=== PATIENT | male | born 1965 | race Two or more races ===

== ENCOUNTER → 2024-12-16 | Outpatient (CLI) | payer BC ==
[2024-12-16 07:23] LABS: Urine Bacteria None Seen /hpf (None Seen)
[2024-12-16 07:49] LABS: Basophils # (auto) 0 10 ^3/uL (0-0.2); Basophils % (auto) 0.1 % (0.0-2.0); Eosinophils # (auto) 0.2 10 ^3/uL (0-0.8); Eosinophils % (auto) 2.6 % (0.0-7.0); Hematocrit 43.9 % (41.0-53.0); Hemoglobin 15.2 g/dL (13.5-17.5); Lymphocytes # (auto) 1.9 10 ^3/uL (0.4-5.4); Lymphocytes % (auto) 31.2 % (10.0-50.0); Mean Corpuscular Hemoglobin 30.8 pg (28.0-32.0); Mean Corpuscular Hgb Conc. 34.7 g/dL (32.0-36.0); Mean Corpuscular Volume 88.8 fL (80.0-100.0); Monocytes # (auto) 0.4 10 ^3/uL (0-1.3); Monocytes % (auto) 7.2 % (0.0-12.0); Neutrophils # (auto) 3.7 10 ^3/uL (1.6-8.6); Neutrophils % (auto) 58.9 % (37.0-80.0); Nucleated Red Blood Cells % 0.1 %; Platelet Count (auto) 193 10^3/uL (140-450); Red Blood Cells 4.94 10^6/uL (4.5-5.90); Red Cell Distribution Width 13.5 % (11.8-14.3); White Blood Cell 6.2 10^3/uL (4.4-10.8)
[2024-12-16 07:50] LABS: Urine Blood Negative /uL (Negative); Urine Clarity Clear (Clear); Urine Color Yellow (Yellow); Urine Protein, UAD Negative (Negative); Urine Specific Gravity 1.025 (1.001-1.035); Urine Squamous Epithelial Cell None Seen /hpf (<5); Urine Urobilinogen Normal (Negative); Urine WBC < 1 /HPF (0-3)
[2024-12-16 08:14] LABS: Alanine Aminotransferase 41 U/L (7-40); Albumin 4.5 g/dL (3.2-4.8); Alkaline Phosphatase 54 U/L (46-116); Aspartate Aminotransferase 37 U/L (13-40); Bilirubin, Total 0.3 mg/dL (0.2-1.0); Calcium 9.8 mg/dL (8.7-10.4); Cholesterol 134 mg/dL (< 200); LDL Cholesterol 79 mg/dL (< 100); Potassium 3.9 mmol/L (3.5-5.1); Sodium 143 mmol/L (136-145); Total Protein 7.5 g/dL (5.7-8.2); Triglycerides 234 mg/dL (< 150)
[2024-12-16 08:15] LABS: Glucose 131 mg/dL (74-106); HDL Cholesterol 28 mg/dL (40-59)
[2024-12-16 08:16] LABS: Chloride 108 mmol/L (98-107)
[2024-12-16 08:17] LABS: Anion Gap 11 (5-15); BUN/Creatinine Ratio 23.1 (10.0-20.0); Blood Urea Nitrogen 21 mg/dL (9-23); Carbon Dioxide 24 mmol/L (20-31)
[2024-12-17 13:14] LABS: Hepatitis A Total Antibody Negative (Negative)
[2024-12-17 13:15] LABS: Hepatitis B Surface Antibody Negative (Negative); Hepatitis B Surface Antigen Negative (Negative)
[2024-12-17 13:19] LABS: Hepatitis B Core Total AB Positive (Negative); Hepatitis C Antibody Positive (Negative)
[2024-12-18 05:08] LABS: Chlamydia Trachomatis, NAA Negative (Negative); Neisseria gonorrhoeae, NAA Negative (Negative)
== END | disposition home or self-care (01) ==
LOC: LAB 07:04
PROVIDERS: ATTEND Licensed Practical Nurse
DX: I10 Essential (primary) hypertension (principal); E11.9 Type 2 diabetes mellitus without complications; E55.9 Vitamin D deficiency, unspecified; E78.5 Hyperlipidemia, unspecified; Z13.6 Encounter for screening for cardiovascular disorders; Z12.11 Encounter for screening for malignant neoplasm of colon; Z11.3 Encounter for screening for infections with a predominantly sexual mode of transmission; Z13.29 Encounter for screening for other suspected endocrine disorder
CPT/HCPCS: 36415; 80053; 80061; 81001; 82043; 82274; 82306; 83036; 84153; 84443; 85025; 86704; 86706; 86708; 86780; 86803; 87340

== ENCOUNTER 2025-02-18 06:19 | Inpatient (IN) | payer BC ==
[2025-02-17 13:00] LABS: Hematocrit 46.3 % (41.0-53.0); Hemoglobin 16.4 g/dL (13.5-17.5); Mean Corpuscular Hemoglobin 31.7 pg (28.0-32.0); Mean Corpuscular Volume 89.1 fL (80.0-100.0); Nucleated Red Blood Cells % 0.2 %
[2025-02-17 13:02] LABS: INR 1.03 (0.9-1.15); Partial Thromboplastin Time 27.5 SEC (24.5-34.5); Prothrombin Time 10.9 sec (9.3-11.8)
[2025-02-17 13:03] LABS: Urine Protein, UAD Negative (Negative)
[2025-02-17 13:13] LABS: Anion Gap 8 (5-15); BUN/Creatinine Ratio 17.0 (10.0-20.0); Blood Urea Nitrogen 19 mg/dL (9-23); Calcium 10.0 mg/dL (8.7-10.4); Carbon Dioxide 27 mmol/L (20-31); Chloride 105 mmol/L (98-107); Glucose 86 mg/dL (74-106); Potassium 4.2 mmol/L (3.5-5.1); Sodium 140 mmol/L (136-145); Total Protein 7.7 g/dL (5.7-8.2)
[2025-02-17 13:14] LABS: Bilirubin, Total 0.5 mg/dL (0.2-1.0)
[2025-02-17 13:16] LABS: Alanine Aminotransferase 64 U/L (7-40); Albumin 4.9 g/dL (3.2-4.8); Alkaline Phosphatase 45 U/L (46-116)
[~2025-02-18] VITALS: Ht 170.2 cm; Wt 103.0 kg
[2025-02-18] VITALS (29 sets, daily range): BP systolic 85–115; BP diastolic 44–77; PULSE 74–113; RESP 14–30; TEMP 97.2–97.9; O2SAT 84–95
[~2025-02-18 06:19] MED LIST: ASPI81CH59 PO; LISI20TA56 PO; MULTLIQ28 OR; OMEG100019 PO; TIRZ5INJ2 SC
[2025-02-18] MEDS: ceFAZolin 2 GM/D5W50ml 50 ML IV ONE (06:34)
[2025-02-18] MEDS ORDERED: HYDROmorphone HCL 2 MG/ML VL/or syr ONE (08:10)
[2025-02-18] MEDS ORDERED: PROPOFOL 10 MG/ML 20 ML IV ONE (08:10)
[2025-02-18] MEDS ORDERED: fentaNYL CITRATE 100 MCG/2 ML VL ONE ×2 (08:10→09:13)
[2025-02-18] MEDS: SUCCINYLCHOLINE CHLORIDE 20 MG/ML 10ML VIAL IV ONE (08:13)
[2025-02-18] MEDS ORDERED: ROCURONIUM 10MG/ML 10ML VIAL IV ONE (08:50)
[2025-02-18] MEDS ORDERED: ONDANSETRON HCL 4 MG/2 ML VIAL ONE (08:51)
[2025-02-18] MEDS ORDERED: SUGAMMADEX 200mg/2ml Vial (100MG/ML) IV ONE (09:29)
[2025-02-18] MEDS: BUPIVACAINE 0.5% P/F INJ 10 ML VIAL ONE (09:33)
[2025-02-18] MEDS: LIDOCAINE W/ EPINEPHRINE 1% 20ML VIAL ONE (09:33)
[2025-02-18] MEDS ORDERED: ONDANSETRON HCL 4 MG/2 ML VIAL IV PRN ×2 (09:45→12:30)
[2025-02-18] MEDS: D5W/SOD CHL 0.45%/KCL 20MEQ 1,000 ML IV SCH (09:45)
[2025-02-18] MEDS: METOCLOPRAMIDE HCL 5MG/ml INJ 2ml VIAL IV ONE (10:00)
[2025-02-18] MEDS: ONDANSETRON HCL 4 MG/2 ML VIAL IV ONE (10:00)
[2025-02-18] MEDS ORDERED: MEPERIDINE HCL (25 MG/ML) 1ML VIAL IV PRN (10:00)
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
[2025-02-18] MEDS: ACETAMINOPHEN IV 1000 MG/100ML (10MG/ML) IV PRN (10:15)
[2025-02-18] MEDS: HYDROmorphone HCL 2 MG/ML VL/or syr IV PRN ×2 (10:15→21:05)
[2025-02-18] MEDS: HYDROmorphone HCL 2 MG/ML VL/or syr ONE (10:40)
[2025-02-18] MEDS: ACETAMINOPHEN IV 100 ML IV ONE (10:41)
--- NOTE | 2025-02-18 12:19 | DVHHP2 ---
Review of Systems Allergies: Coded Allergies: NO KNOWN ALLERGIES (Unverified , 02/12/25) Medications Current Medications Medications Dose Ordered Sig/Liz Route Start Time Stop Time Status Last Admin Dose Admin Potassium Chloride/Dextrose/ Sod Cl 1,000 ml @ 120 mls/hr Q8H20M IV 02/18/25 09:45 Cefazolin Sodium/ Dextrose 50 ml @ 50 mls/hr Q8HR IV 02/18/25 14:00 Metronidazole 100 ml @ 100 mls/hr Q8HR IV 02/18/25 14:00 Hydromorphone HCl 1 mg Q3HPRN PRN IV 02/18/25 09:45 Ondansetron HCl 4 mg Q4HPRN PRN IV 02/18/25 09:45 Pantoprazole Sodium 40 mg DAILY IV 02/18/25 10:00 Exam Vital Signs Vital Signs Date Time Temp Pulse Resp B/P (MAP) Pulse Ox O2 Delivery O2 Flow Rate FiO2 02/18/25 10:25 21 21 127/75 (92) 93 02/18/25 09:42 96.5 96.5 02/18/25 09:42 Mask 10.0 84 Labs/Xrays Labs Test 02/17/25 12:20 Range/Units White Blood Count 5.4 4.4-10.8 10^3/uL Red Blood Count 5.19 4.5-5.90 10^6/uL Hemoglobin 16.4 13.5-17.5 g/dL Hematocrit 46.3 41.0-53.0 % Mean Corpuscular Volume 89.1 80.0-100.0 fL Mean Corpuscular Hemoglobin 31.7 28.0-32.0 pg Mean Corpuscular Hemoglobin Concent 35.5 32.0-36.0 g/dL Red Cell Distribution Width 13.7 11.8-14.3 % Platelet Count 202 140-450 10^3/uL Mean Platelet Volume 8.7 6.9-10.8 fL Neutrophils (%) (Auto) 53.4 37.0-80.0 % Lymphocytes (%) (Auto) 36.6 10.0-50.0 % Monocytes (%) (Auto) 7.9 0.0-12.0 % Eosinophils (%) (Auto) 2.0 0.0-7.0 % Basophils (%) (Auto) 0.1 0.0-2.0 % Neutrophils # (Auto) 2.9 1.6-8.6 10 ^3/uL Lymphocytes # (Auto) 2.0 0.4-5.4 10 ^3/uL Monocytes # (Auto) 0.4 0-1.3 10 ^3/uL Eosinophils # (Auto) 0.1 0-0.8 10 ^3/uL Basophils # (Auto) 0 0-0.2 10 ^3/uL Nucleated Red Blood Cells 0.2 % Prothrombin Time 10.9 9.3-11.8 sec Prothrombin Time INR 1.03 0.9-1.15 Activated Partial Thromboplast Time 27.5 24.5-34.5 SEC Urine Color Yellow Yellow Urine Clarity Clear Clear Urine pH 6.0 5.0-9.0 Urine Specific [place] 1.029 1.001-1.035 Urine Protein Negative Negative Urine Ketones Negative Negative Urine Blood Negative Negative /uL Urine Nitrite Negative Negative Urine Bilirubin Negative Negative Urine Urobilinogen Normal Negative mg/dL Urine Leukocyte Esterase Negative Negative /uL Urine RBC 1 0 - 3 /hpf Urine Microscopic WBC 1 0-3 /HPF Urine Squamous Epithelial Cells Few <5 /hpf Urine Bacteria None seen None Seen /hpf Urine Mucus Few None Seen Urine Glucose Normal Normal mg/dL Sodium Level 140 136-145 mmol/L Potassium Level 4.2 3.5-5.1 mmol/L Chloride Level 105 98-107 mmol/L Carbon Dioxide Level 27 20-31 mmol/L Anion Gap 8 5-15 Blood Urea Nitrogen 19 9-23 mg/dL Creatinine 1.12 0.700-1.30 mg/dL Glomerular Filtration Rate Calc 75 >90 mL/min BUN/Creatinine Ratio 17.0 10.0-20.0 Serum Glucose 86 74-106 mg/dL Calcium Level 10.0 8.7-10.4 mg/dL Total Bilirubin 0.5 0.2-1.0 mg/dL Aspartate Amino Transferase (AST) 54 H 13-40 U/L Alanine Aminotransferase (ALT) 64 H 7-40 U/L Alkaline Phosphatase 45 L 46-116 U/L Total Protein 7.7 5.7-8.2 g/dL Albumin 4.9 H 3.2-4.8 g/dL SEPSIS Sepsis Screen Physician Orders Commutator Assembler (02/18/25 09:50) Notify Anesth. For Changes: (02/18/25 09:50) Discharge To Room Per Criteria (02/18/25 09:50) Admit (02/18/25 10:34) To Pacu For Recovery (02/18/25 09:36) Oxygen Via Cool Mist Mask (02/18/25 09:36) Incentive Spirometry Q 1hr (02/18/25 09:36) Abdominal Binder (02/18/25 09:36) Ky Drain To Closed Suction (02/18/25 09:36) Clear Liq Diet (02/18/25 Lunch) Bilirubin, Total (02/19/25 04:00) Sequential Compression Device (02/18/25 09:36) D5w/Sod Chl 0.45%/Kcl 20meq (02/18/25 09:45) Cefazolin 2 Gm/S3y74lw (Ancef) (02/18/25 14:00) Metronidazole 500mg/100ml (Flagyl 500mg/ (02/18/25 14:00) Hydromorphone Injection (Dilaudid Inject (02/18/25 09:45) Ondansetron Hcl (Zofran) (02/18/25 09:45) Pantoprazole (Protonix) (02/18/25 10:00) Page Hospitalist For Admission (02/18/25 09:36) Vital Signs Date Time Temp Pulse Resp B/P (MAP) Pulse Ox O2 Delivery O2 Flow Rate FiO2 02/18/25 10:25 21 21 127/75 (92) 93 02/18/25 10:10 87 15 128/84 (99) 94 02/18/25 09:55 85 16 127/70 (89) 90 02/18/25 09:50 85 17 116/73 (87) 93 02/18/25 09:45 85 17 108/73 (85) 93 02/18/25 09:42 96.5 86 16 108/69 (82) 84 96.5 02/18/25 09:42 Mask 10.0 84 02/18/25 09:42 86 16 84 Mask 10.0 02/18/25 06:24 98.1 61 20 134/94 (107) 96 98.1 Medications Medications Dose Ordered Sig/Liz Route Start Time Stop Time Status Last Admin Dose Admin Acetaminophen 1,000 mg [id number] PRN IV 02/18/25 10:00 02/18/25 10:24 DC 02/18/25 10:15 1,000 MG Bupivacaine HCl 20 ml STK-MED ONCE .ROUTE 02/18/25 06:57 02/18/25 06:55 DC 02/18/25 09:33 10 ML Hydromorphone HCl 0.5 mg Q10M PRN IV 02/18/25 10:00 02/18/25 10:41 DC 02/18/25 10:15 0.5 MG Lidocaine/ Epinephrine 20 ml STK-MED ONCE .ROUTE 02/18/25 06:57 02/18/25 06:55 DC 02/18/25 09:33 10 ML Assessment/Plan Assessment/Plan see dictated note Plan discussed with: Patient Date of Service: Feb 18, 2025 Billing Provider: ROMANA LANDAVERDE MD Common Visit Codes: [id number] INP/OBS CARE (HIGH) Secondary Visit Codes: [id number] CARE PLAN 30 MINUTES ROMANA LANDAVERDE MD Feb 18, 2025 12:19
[2025-02-18] MEDS: PANTOPRAZOLE 40 MG/10 ML VIAL INJ IV SCH (12:30)
[2025-02-18] MEDS ORDERED: ACETAMINOPHEN 325 MG TAB PO PRN (12:30)
--- NOTE | 2025-02-18 12:33 | DVHHP ---
ADMIT DATE: 02/18/2025 HISTORY OF PRESENT ILLNESS: The patient is a 59-year-old gentleman who has been admitted after he underwent laparoscopic cholecystectomy for cholelithiasis and chronic cholecystitis. The patient at this time denies any significant pain. No chest pain, no shortness of breath, no nausea or vomiting. REVIEW OF SYSTEMS: Otherwise currently negative. PAST MEDICAL HISTORY: Significant for hepatitis C status post treatment and hypertension. MEDICATIONS: He takes lisinopril, Zepbound. ALLERGIES: No known drug allergies. SOCIAL HISTORY: Denies smoking or alcohol. Lives at home with his children. FAMILY HISTORY: Negative. PHYSICAL EXAMINATION: GENERAL: The patient is awake and alert. VITAL SIGNS: Temperature of 98.1, pulse 87 per minute, blood pressure 122/84. SHEENT: Unremarkable. NECK: There is no JVD. No pedal edema. LUNGS: Equal bilaterally. No added sounds. CARDIOVASCULAR: S1 and S2 is regular. No murmurs. ABDOMEN: Soft. Bowel sounds are hypoactive. There is a RADHA drain in place. NEUROLOGIC: Nonfocal. MUSCULOSKELETAL: Normal. ASSESSMENT AND PLAN: * Hypertension, for which the patient's blood pressure will be monitored. * History of hepatitis C. * Obesity. * Status post laparoscopic cholecystectomy for cholelithiasis and chronic cholecystitis. * The patient will be placed on IV fluids, pain medications, and a clear liquid diet. * Advanced care planning. The patient is a full code - Time spent is 18 minutes. MD DELILAH Dotson/SHARAN TID: [id number] RECEIPT: [id number] [facility]PITALBlake
[2025-02-18] MEDS: ceFAZolin 2 GM/D5W50ml 50 ML IV SCH (13:36)
[2025-02-18] MEDS: NOREPINEPHRINE 8 MG/250ML KIT 250 ML IV SCH (13:43)
[2025-02-18 13:51] LABS: Hematocrit 32.4 % (41.0-53.0); Hemoglobin 11.2 g/dL (13.5-17.5); Mean Corpuscular Hemoglobin 31.2 pg (28.0-32.0); Mean Corpuscular Volume 90.2 fL (80.0-100.0); Nucleated Red Blood Cells % 0.0 %
[2025-02-18] MEDS: NOREPINEPHRINE 8 MG/250ML KIT 250 ML IV ONE (13:51)
[2025-02-18] MEDS ORDERED: D5W/SOD CHL 0.45%/KCL 20MEQ 1,000 ML IV SCH (14:30)
[2025-02-18 14:55] LABS: INR 1.16 (0.9-1.15); Prothrombin Time 12.1 sec (9.3-11.8)
--- NOTE | 2025-02-18 15:21 | DVHNC2 ---
Procedure - Central Line Placement Start: 1455 Finish: [address] central line for patient s/p lap rupert with hypotension, oozing at surgical site, and Levophed infusion. Patient ID's and interviewed, consents signed, monitors on in PACU, VSS on Levophed infusion. Patient positioned supine, head to left side, and bed in slight Trendelenburg position. Site is prepped and drape with full body drape. Sterile technique is maintained throughout line placement. US ID of anatomy performed. Right Internal Jugular Vein identified. 3 ml Lidocaine 1% injected subdermal. Finder needle placed under US guidance and dark, red blood is aspirated. Syringe is removed and guidewire placed, guidewire visualization in maintained throughout procedure. Needle is removed. Small incision is made with scalpel along the guidewire. Dilator is placed over guidewire and then removed. 7 fr 3-lumen 20 cm catheter is placed over wire. Wire is then removed. Each lumen of catheter is aspirated and then flushed with normal saline, dark red blood is aspirated each time easily and each lumen flushes easily. Catheter is then sutured in place, Bio- Patch is placed at site. Site is cleaned, drapes removed, and dressing applied. Each lumen is then flushed again with normal saline, each flushes easily. IV lines are attached and drips continued. VSS throughout, all atraumatic. ZOIE SNIDER CRNA Feb 18, 2025 15:21
[2025-02-18] MEDS: FUROSEMIDE 20 MG/2 ML VIAL IV ONE (15:38)
[2025-02-18] MEDS: FUROSEMIDE 20 MG/2 ML VIAL ONE (15:39)
--- NOTE | 2025-02-18 15:46 | DVH ---
EXAM: XY CHEST XRAY 1 VIEW TECHNIQUE: Single frontal chest radiograph CLINICAL HISTORY: PER DOCTOR ORDER COMPARISON: None Findings/Impression: Frontal chest radiograph demonstrates no acute osseous or superficial soft tissue abnormalities. Right IJ catheter terminates near the inferior cavoatrial junction. The trachea is midline. The cardiac silhouette and mediastinum are within normal limits. Low lung volumes with bronchovascular crowding. No pneumothorax, pleural effusions, or consolidations.
--- NOTE | 2025-02-18 16:04 | DVHPN2 ---
Progress Note Date Seen: Feb 18, 2025 Medical Necessity Reason Pt with a Central, PICC or Fol: No Objective vital signs Vital Sign Date Time Temp Pulse Resp B/P (MAP) Pulse Ox O2 Delivery O2 Flow Rate FiO2 02/18/25 14:14 79/44 02/18/25 12:30 89 15 97 02/18/25 09:42 96.5 96.5 02/18/25 09:42 Mask 10.0 84 Total Intake and Output 02/17/25 02/17/25 02/18/25 15:00 23:00 07:00 Intake Total 100 ml Balance 100 ml medications Current Medications Medications Dose Ordered Sig/Liz Route Start Time Stop Time Status Last Admin Dose Admin Cefazolin Sodium/ Dextrose 50 ml @ 50 mls/hr Q8HR IV 02/18/25 14:00 02/18/25 13:36 50 MLS/HR Metronidazole 100 ml @ 100 mls/hr Q8HR IV 02/18/25 14:00 02/18/25 13:48 100 MLS/HR Hydromorphone HCl 1 mg Q3HPRN PRN IV 02/18/25 09:45 Pantoprazole Sodium 40 mg DAILY IV 02/18/25 10:00 02/18/25 12:30 40 MG Acetaminophen 650 mg Q6HP PRN PO 02/18/25 12:30 Acetaminophen/ Hydrocodone Bitart 1 tab Q6HPRN PRN PO 02/18/25 12:30 Ondansetron HCl 4 mg Q6HPRN PRN IV 02/18/25 12:30 Norepinephrine Bitartrate 250 ml @ 3.75 mls/hr Q24H IV 02/18/25 13:45 02/18/25 13:43 3.75 MLS/HR Lactated Ringer's 1,000 ml @ 150 mls/hr Q6H40M IV 02/18/25 14:30 Potassium Chloride/Dextrose/ Sod Cl 1,000 ml @ 150 mls/hr Q6H40M IV 02/18/25 14:30 UNV laboratory and microbiology Laboratory Tests 02/18/25 12:57 02/17/25 12:20 Test 02/17/25 12:20 Range/Units Serum Glucose 86 74-106 mg/dL Problem List/Assessment/Plan Problem List/Assessment/Plan 7/30/25i was called at about 1400 hours that the patient's BP was lower than desired, repeat cbc showed significant drop(patient received 4 liters of crystalloid during and immediately after operation.I came to check in onm the patient at about 14:30, he was comfortable,heart rate in the 90's bp[ in the 87 to 95 range./ he was started on Levophed at maintained BP in the 80 to 90 systolic on 7 to 8micrograms of levophed. I ordered a unit of blood and he is now maintaining BP of 102 /67. i also gave 20 mg Lasix and he is putting out dilute urine. we were able to decrease the Levophed to 4 and he is maintains BP of 103 //65 with heart rate of 95. CXR showed slight volume overload prior to Lasix administration. I removed his dressing and inspected the wounds, slight bloody drainage from around the RADHA drain. abdomen is soft, non distended and appropriately tender, I attempted to call his daughter but call went unanswered. Plan discussed with: Patient, Other KUSH CORNELIUS MD Feb 18, 2025 16:04
[2025-02-18 18:03] LABS: Hematocrit 34.8 % (41.0-53.0); Hemoglobin 12.1 g/dL (13.5-17.5); Mean Corpuscular Hemoglobin 31.0 pg (28.0-32.0); Mean Corpuscular Volume 89.2 fL (80.0-100.0); Nucleated Red Blood Cells % 0.0 %
[2025-02-18 18:06] LABS: INR 1.09 (0.9-1.15); Partial Thromboplastin Time 23.9 SEC (24.5-34.5); Prothrombin Time 11.5 sec (9.3-11.8)
[2025-02-18] MEDS: HYDROmorphone HCL 2 MG/ML VL/or syr IV ONE (18:30)
--- NOTE | 2025-02-18 19:59 | DVH ---
CLINICAL HISTORY: bleeding from surgical site TECHNIQUE: CT of the abdomen and pelvis was performed without intravenous contrast. This exam was per formed according to our departmental dose optimization program. Up-to-date CT equipment and radiation dose reduction techniques are utilized as appropriate. CTDI: 26.08 DLP: 3.92 WID: COMPARISON: None FINDINGS: Lower Thorax: Mild thoracic spondylosis. Linear and ground-glass opacities in the visualized lungs. D ependent consolidations in the bilateral lungs. Normal-sized heart with trace pericardial effusion. T here is a central venous catheter terminating in the right atrium. There is gryc-lf-spyverzl 3-vessel calcified coronary artery disease greatest in the left anterior descending coronary artery. Sub 5 mm left lower lobe basilar pulmonary nodule on series 3, image 41. Liver and Biliary system: Moderate hepatic steatosis and mild hepatomegaly measuring 19 cm craniocaud al. Limited evaluation for hepatic lesion on noncontrast study. There are surgical clips in the gall bladder fossa. There is a calcification in the gallbladder fossa series 2, image 34. Moderate interme diate density fluid in the gallbladder fossa and perihepatic region. There is cteo-zc-wqfudbir inter mediate density fluid in the upper abdomen for example adjacent to the stomach on series 2, image 32. There is a right anterior abdominal wall approach surgical drain terminating in the subhepatic space . Spleen: Unremarkable. Adrenal Glands and Kidneys: Unremarkable. Pancreas and Retroperitoneum: Unremarkable. Aorta and Major Vessels: Aortoiliac vessels are normal caliber with mild calcified atherosclerotic pl aque. Bowel, Mesentery and Peritoneal space: Normal caliber small and large bowel. There is mild free intra peritoneal air. There is mild colonic diverticulosis. Small sliding-type hiatal hernia. There is mild ascites and adjy-fu-goyzdwno hemoperitoneum. Pelvis: Chua catheter in the urinary bladder. Tiny dystrophic calcification in the right prostate gl and. There is no pelvic lymphadenopathy. Abdominal wall and Osseous Structures: Small fat containing bilateral inguinal hernias. Small fat co ntaining umbilical hernia. There is small amount of soft tissue gas in the umbilical hernia. Multilev el lower thoracic and lumbar spondylosis. There is a chronic mild compression fracture of L2. IMPRESSION: Moderate upper abdominal hemoperitoneum. Evaluation for active bleeding limited on noncontrast study . Surgical drain from right abdominal approach terminates in the subhepatic region. Surgical clips in the gallbladder fossa suggesting cholecystectomy. Correlate with surgical procedur e history. Mild colonic diverticulosis. Moderate linear and dependent opacities in the lungs likely atelectasis. Puoj-mm-aylqgusj 3-vessel calcified coronary artery disease. Hepatomegaly with moderate hepatic steatosis. Mild colonic diverticulosis.
[2025-02-18] MEDS: LACTATED RINGER'S 1,000 ML IV SCH (20:12)
[2025-02-19] VITALS (105 sets, daily range): BP systolic 92–130; BP diastolic 39–87; PULSE 66–97; RESP 10–35; TEMP 97.6–98.3; O2SAT 89–98
[2025-02-19 00:56] LABS: Hematocrit 29.8 % (41.0-53.0); Hemoglobin 10.5 g/dL (13.5-17.5); Mean Corpuscular Hemoglobin 31.5 pg (28.0-32.0); Mean Corpuscular Volume 89.3 fL (80.0-100.0); Nucleated Red Blood Cells % 0.0 %
[2025-02-19 04:52] LABS: Hematocrit 30.0 % (41.0-53.0); Hemoglobin 10.5 g/dL (13.5-17.5); Mean Corpuscular Hemoglobin 31.3 pg (28.0-32.0); Mean Corpuscular Volume 89.2 fL (80.0-100.0); Nucleated Red Blood Cells % 0.0 %
[2025-02-19 05:14] LABS: Alanine Aminotransferase 40 U/L (7-40); Albumin 3.4 g/dL (3.2-4.8); Anion Gap 7 (5-15); BUN/Creatinine Ratio 21.8 (10.0-20.0); Bilirubin, Total 0.6 mg/dL (0.2-1.0); Blood Urea Nitrogen 19 mg/dL (9-23); Carbon Dioxide 26 mmol/L (20-31); Potassium 4.1 mmol/L (3.5-5.1); Sodium 141 mmol/L (136-145)
[2025-02-19 05:20] LABS: Alkaline Phosphatase 30 U/L (46-116); Calcium 7.6 mg/dL (8.7-10.4); Chloride 108 mmol/L (98-107); Glucose 150 mg/dL (74-106); Total Protein 5.2 g/dL (5.7-8.2)
[2025-02-19 05:40] LABS: INR 1.09 (0.9-1.15); Partial Thromboplastin Time 24.1 SEC (24.5-34.5); Prothrombin Time 11.5 sec (9.3-11.8)
[2025-02-19] MEDS: FUROSEMIDE 20 MG/2 ML VIAL IV ONE ×2 (07:31→20:15)
[2025-02-19] MEDS: LACTATED RINGER'S 1,000 ML IV SCH ×2 (08:30→18:17)
--- NOTE | 2025-02-19 10:23 | DVH ---
EXAM: XY CHEST XRAY 1 VIEW Indication: REQUIRING HIGH O2 /S/P SURGERY Technique: Single frontal view of the chest was obtained Comparison: XY CHEST XRAY 1 VIEW on DOS: 02/18/25 FINDINGS: Lines and Tubes: None Lungs: Low lung volumes. Right internal jugular central venous catheter is unchanged. Pleura: Low lung volumes with diffuse interstitial opacities. No pneumothorax. Cardiomediastinal contours: Unremarkable Bones: No acute osseous abnormality. IMPRESSION: Slightly worsened pulmonary congestion compared to prior exam.
[2025-02-19 12:25] LABS: Hematocrit 28.2 % (41.0-53.0); Hemoglobin 10.2 g/dL (13.5-17.5); Mean Corpuscular Hemoglobin 31.8 pg (28.0-32.0); Mean Corpuscular Volume 88.4 fL (80.0-100.0); Nucleated Red Blood Cells % 0.1 %
--- NOTE | 2025-02-19 13:13 | DVHPN2 ---
Progress Note Date Seen: Feb 19, 2025 Medical Necessity Reason Pt with a Central, PICC or Fol: Yes The following are medically ne: Central Line Subjective Patient reports: No new complaints Review of Systems: HEENT:Normal, CVS:Normal, RESPIRATORY:Normal, GI:Normal, :Normal, MSK:Normal, NEURO:Normal Objective vital signs Vital Sign Date Time Temp Pulse Resp B/P (MAP) Pulse Ox O2 Delivery O2 Flow Rate FiO2 02/19/25 12:29 79 02/19/25 12:00 17 96 Oxymizer 15 N/A 02/19/25 11:00 107/53 (71) 02/19/25 08:00 98.0 98.0 Total Intake and Output 02/18/25 02/18/25 02/19/25 15:00 23:00 07:00 Intake Total 5582.50 ml 1405.00 ml Output Total 825 ml 840 ml Balance 4757.50 ml 565.00 ml medications Current Medications Medications Dose Ordered Sig/Liz Route Start Time Stop Time Status Last Admin Dose Admin Cefazolin Sodium/ Dextrose 50 ml @ 50 mls/hr Q8HR IV 02/18/25 14:00 02/19/25 06:00 50 MLS/HR Metronidazole 100 ml @ 100 mls/hr Q8HR IV 02/18/25 14:00 02/18/25 22:39 100 MLS/HR Hydromorphone HCl 1 mg Q3HPRN PRN IV 02/18/25 09:45 02/19/25 10:20 1 MG Pantoprazole Sodium 40 mg DAILY IV 02/18/25 10:00 02/19/25 10:19 40 MG Acetaminophen 650 mg Q6HP PRN PO 02/18/25 12:30 Acetaminophen/ Hydrocodone Bitart 1 tab Q6HPRN PRN PO 02/18/25 12:30 Ondansetron HCl 4 mg Q6HPRN PRN IV 02/18/25 12:30 Norepinephrine Bitartrate 250 ml @ 3.75 mls/hr Q24H IV 02/18/25 13:45 02/19/25 07:00 7.5 MLS/HR Potassium Chloride/Dextrose/ Sod Cl 1,000 ml @ 150 mls/hr Q6H40M IV 02/18/25 14:30 UNV Lactated Ringer's 1,000 ml @ 100 mls/hr Q10H IV 02/19/25 08:30 02/19/25 08:30 100 MLS/HR Examination: GENERAL:Normal, HEENT:Normal, NECK:Normal, LUNGS:Normal, LUNGS:Abnormal (on oxygen), CVS:Normal, ABDOMEN:Normal, ABDOMEN:Abnormal (drain with blood, dressing at site), MSK:Normal, SKIN:Normal, NEURO:Normal, :Normal laboratory and microbiology Laboratory Tests 02/19/25 12:00 02/19/25 04:22 Test 02/19/25 04:22 Range/Units Serum Glucose 150 H 74-106 mg/dL Problem List/Assessment/Plan Problem List/Assessment/Plan * Hypertension, for which the patient's blood pressure will be monitored. * History of hepatitis C- treated * Obesity. * Status post laparoscopic cholecystectomy for cholelithiasis and chronic cholecystitis. * bleeding with likely hypovolemic shock: levophed, blood transfusion, iv antibiotics * Advanced care planning. The patient is a full code-Time spent is 18 minutes. Plan discussed with: Patient My Orders My Orders Orders - ROMANA LANDAVERDE MD Procedure Category Date Status Time Transfer Orders XFER 02/18/25 Transmitted 14:22 Communication Order ORDERS 02/18/25 Transmitted 15:07 Communication Order ORDERS 02/18/25 Transmitted 17:06 Ct Ab Pel Wo Con-No CT 02/18/25 Resulted Oral Or Iv 17:06 Critical Care Time (mins): 37 (critical care time outside procedures is 37 mins) Date of Service: Feb 19, 2025 Billing Provider: ROMANA LANDAVERDE MD Common Visit Codes: [id number] CARE 30-74 MIN ROMANA LANDAVERDE MD Feb 19, 2025 13:13
--- NOTE | 2025-02-19 16:04 | DVHPN2 ---
Subjective Date Seen: Feb 19, 2025 Post op day Post op day: 1 Patient reports: No new complaints General: Normal HNT: Normal Cardiovascular: Normal Respiratory: Normal Gastrointestinal: Normal Genitourinary: Normal Musculoskeletal: Normal Neurological: Normal Objective Vitals Vital Sign Date Time Temp Pulse Resp B/P (MAP) Pulse Ox O2 Delivery O2 Flow Rate FiO2 02/19/25 14:37 68 18 105/61 02/19/25 14:00 96 Oxymizer 15 N/A 02/19/25 08:00 98.0 98.0 Total Intake and Output 02/18/25 02/18/25 02/19/25 15:00 23:00 07:00 Intake Total 5582.50 ml 1405.00 ml Output Total 825 ml 840 ml Balance 4757.50 ml 565.00 ml Medications Current Medications Medications Dose Ordered Sig/Liz Route Start Time Stop Time Status Last Admin Dose Admin Cefazolin Sodium/ Dextrose 50 ml @ 50 mls/hr Q8HR IV 02/18/25 14:00 02/19/25 14:45 50 MLS/HR Metronidazole 100 ml @ 100 mls/hr Q8HR IV 02/18/25 14:00 02/19/25 14:28 100 MLS/HR Hydromorphone HCl 1 mg Q3HPRN PRN IV 02/18/25 09:45 02/19/25 14:37 1 MG Pantoprazole Sodium 40 mg DAILY IV 02/18/25 10:00 02/19/25 10:19 40 MG Acetaminophen 650 mg Q6HP PRN PO 02/18/25 12:30 Acetaminophen/ Hydrocodone Bitart 1 tab Q6HPRN PRN PO 02/18/25 12:30 Ondansetron HCl 4 mg Q6HPRN PRN IV 02/18/25 12:30 Norepinephrine Bitartrate 250 ml @ 3.75 mls/hr Q24H IV 02/18/25 13:45 02/19/25 07:00 7.5 MLS/HR Potassium Chloride/Dextrose/ Sod Cl 1,000 ml @ 150 mls/hr Q6H40M IV 02/18/25 14:30 UNV Lactated Ringer's 1,000 ml @ 75 mls/hr [id number] IV 02/19/25 13:15 UNV General: Normal, Well developed Head/Eyes: Normal ENT: Normal Neck: Normal Lungs: Normal Cardiovascular: Normal Abdominal: Normal, Soft Neurological: Normal Labs and Microbiology Laboratory Tests 02/19/25 12:00 02/19/25 04:22 Test 02/19/25 04:22 Range/Units Serum Glucose 150 H 74-106 mg/dL Ass/Plan Problem List * Hypertension, for which the patient's blood pressure will be monitored. * History of hepatitis C- treated * Obesity. * Status post laparoscopic cholecystectomy for cholelithiasis and chronic cholecystitis. * bleeding with likely hypovolemic shock: levophed, blood transfusion, iv antibiotics * Advanced care planning. The patient is a full code-Time spent is 18 minutes. Assessment/Plan s/p laparoscopic cholecystectomy POD#1 Subjective: - The patient reports feeling better and has no new complaints. Objective: - H and H are stable. - The abdomen is soft, nondistended, and appropriately tender. - The abdominal wound is dry and intact. - The RADHA drain has approximately 40cc of sanguineous fluid. - The drainage from the RADHA site on the side of the abdomen has been decreasing since yesterday. Plan: - Continue the current treatment plan. - A CBC and CMP are scheduled for tomorrow morning. Prognosis: Good Plan discussed with patient, Dr. Simon Visit Coding Surgery Date of Service if different f: Feb 19, 2025 Billing Provider: KUSH SIMON MD Surgery Visit Codes: [id number] INP/OBS CARE(HIGH) CINTIA WALTON NP Feb 19, 2025 16:04
[2025-02-19 17:36] LABS: Hematocrit 27.3 % (41.0-53.0); Hemoglobin 9.7 g/dL (13.5-17.5); Mean Corpuscular Hemoglobin 31.5 pg (28.0-32.0); Mean Corpuscular Volume 88.9 fL (80.0-100.0); Nucleated Red Blood Cells % 0.0 %
[2025-02-19] MEDS: HYDROcodone-ACET 5/325MG TAB PO PRN (20:15)
[2025-02-20] VITALS (90 sets, daily range): BP systolic 91–128; BP diastolic 47–95; PULSE 66–101; RESP 10–32; TEMP 98–98.8; O2SAT 91–99
[2025-02-20 04:08] LABS: Hematocrit 25.1 % (41.0-53.0); Hemoglobin 9.0 g/dL (13.5-17.5); Mean Corpuscular Hemoglobin 31.8 pg (28.0-32.0); Mean Corpuscular Volume 88.6 fL (80.0-100.0); Nucleated Red Blood Cells % 0.0 %
[2025-02-20 04:14] LABS: INR 1.04 (0.9-1.15); Partial Thromboplastin Time 23.9 SEC (24.5-34.5); Prothrombin Time 11.0 sec (9.3-11.8)
[2025-02-20 04:27] LABS: Alanine Aminotransferase 27 U/L (7-40); Albumin 3.4 g/dL (3.2-4.8); Anion Gap 7 (5-15); BUN/Creatinine Ratio 16.7 (10.0-20.0); Bilirubin, Total 0.4 mg/dL (0.2-1.0); Blood Urea Nitrogen 14 mg/dL (9-23); Carbon Dioxide 29 mmol/L (20-31); Chloride 104 mmol/L (98-107); Glucose 104 mg/dL (74-106); Potassium 3.9 mmol/L (3.5-5.1); Sodium 140 mmol/L (136-145)
[2025-02-20 04:38] LABS: Alkaline Phosphatase 32 U/L (46-116); Calcium 7.9 mg/dL (8.7-10.4); Total Protein 5.2 g/dL (5.7-8.2)
--- NOTE | 2025-02-20 08:21 | DVH ---
CHEST RADIOGRAPH Indication: RESP FAILURE Technique: Single frontal view of the chest was obtained Comparison: XY CHEST XRAY 1 VIEW on DOS: 02/19/25 FINDINGS: Lines and Tubes: There is a right central venous catheter with its tip terminating in the superior ve na cava. Lungs: Mild pulmonary vascular congestion. Pleura: No effusion. No pneumothorax. Cardiomediastinal contours: Stable cardiomegaly. Bones: No acute osseous abnormality. IMPRESSION: 1. Mild pulmonary vascular congestion.
--- NOTE | 2025-02-20 10:40 | DVHPN2 ---
Progress Note Date Seen: Feb 20, 2025 Medical Necessity Reason Pt with a Central, PICC or Fol: Yes The following are medically ne: Central Line Objective vital signs Vital Sign Date Time Temp Pulse Resp B/P (MAP) Pulse Ox O2 Delivery O2 Flow Rate FiO2 02/20/25 10:15 81 16 102/70 (81) 95 02/20/25 09:51 Oxymizer 8 N/A 02/20/25 08:00 98.3 98.3 Total Intake and Output 02/19/25 02/19/25 02/20/25 15:00 23:00 07:00 Intake Total 891.25 ml 780.00 ml 810.00 ml Output Total 1600 ml 1685 ml Balance 891.25 ml -820.00 ml -875.00 ml medications Current Medications Medications Dose Ordered Sig/Liz Route Start Time Stop Time Status Last Admin Dose Admin Cefazolin Sodium/ Dextrose 50 ml @ 50 mls/hr Q8HR IV 02/18/25 14:00 02/20/25 06:37 50 MLS/HR Metronidazole 100 ml @ 100 mls/hr Q8HR IV 02/18/25 14:00 02/20/25 05:30 100 MLS/HR Hydromorphone HCl 1 mg Q3HPRN PRN IV 02/18/25 09:45 02/20/25 08:37 1 MG Pantoprazole Sodium 40 mg DAILY IV 02/18/25 10:00 02/20/25 08:08 40 MG Acetaminophen 650 mg Q6HP PRN PO 02/18/25 12:30 Acetaminophen/ Hydrocodone Bitart 1 tab Q6HPRN PRN PO 02/18/25 12:30 02/19/25 20:15 1 TAB Ondansetron HCl 4 mg Q6HPRN PRN IV 02/18/25 12:30 Norepinephrine Bitartrate 250 ml @ 3.75 mls/hr Q24H IV 02/18/25 13:45 02/19/25 07:00 7.5 MLS/HR Potassium Chloride/Dextrose/ Sod Cl 1,000 ml @ 150 mls/hr Q6H40M IV 02/18/25 14:30 UNV Lactated Ringer's 1,000 ml @ 75 mls/hr [id number] IV 02/19/25 13:15 02/20/25 09:50 75 MLS/HR laboratory and microbiology Laboratory Tests 02/20/25 03:00 Test 02/20/25 03:00 Range/Units Serum Glucose 104 74-106 mg/dL Problem List/Assessment/Plan Problem List/Assessment/Plan 02/18/25i was called at about 1400 hours that the patient's BP was lower than desired, repeat cbc showed significant drop(patient received 4 liters of crystalloid during and immediately after operation.I came to check in onm the patient at about 14:30, he was comfortable,heart rate in the 90's bp[ in the 87 to 95 range./ he was started on Levophed at maintained BP in the 80 to 90 systolic on 7 to 8micrograms of levophed. I ordered a unit of blood and he is now maintaining BP of 102 /67. i also gave 20 mg Lasix and he is putting out dilute urine. we were able to decrease the Levophed to 4 and he is maintains BP of 103 //65 with heart rate of 95. CXR showed slight volume overload prior to Lasix administration. I removed his dressing and inspected the wounds, slight bloody drainage from around the RADHA drain. abdomen is soft, non distended and appropriately tender, I attempted to call his daughter but call went unanswered. 02/20/25 improved, h/h stable, drainage sanguineous, patient is hungry requesting food, abdomen appropriately tender, will transfer to [facility] and allow full liquids Plan discussed with: Patient KUSH CORNELIUS MD Feb 20, 2025 10:40
[2025-02-20] MEDS: FUROSEMIDE 20 MG/2 ML VIAL IV ONE (11:54)
--- NOTE | 2025-02-20 16:31 | DVHPN2 ---
Changes from previous H/P or p: Changes Objective Vitals Vital Signs Date Time Temp Pulse Resp B/P (MAP) Pulse Ox O2 Delivery O2 Flow Rate FiO2 02/20/25 16:18 80 27 115/65 02/20/25 15:35 96 Oxymizer 6 N/A 02/20/25 12:00 98.0 98.0 Intake/Output Intake and Output 02/20/25 07:00 Intake Total 2481.25 ml Output Total 3285 ml Balance -803.75 ml Intake Oral 30 ml IV Total 2451.25 ml Output Urine Total 3250 ml Drainage Total 35 ml General Appearance: Alert, Oriented X3, Cooperative, No acute distress Lungs: Clear to auscultation, Normal air movement Cardiovascular: Regular rate, Normal S1, Normal S2, No murmurs Abdomen: Normal bowel sounds, Soft, No tenderness Extremities: No edema Medications Current Medications Medications Dose Ordered Sig/Liz Route Start Time Stop Time Status Last Admin Dose Admin Cefazolin Sodium/ Dextrose 50 ml @ 50 mls/hr Q8HR IV 02/18/25 14:00 02/20/25 11:47 50 MLS/HR Metronidazole 100 ml @ 100 mls/hr Q8HR IV 02/18/25 14:00 02/20/25 11:47 100 MLS/HR Hydromorphone HCl 1 mg Q3HPRN PRN IV 02/18/25 09:45 02/20/25 16:18 1 MG Pantoprazole Sodium 40 mg DAILY IV 02/18/25 10:00 02/20/25 08:08 40 MG Acetaminophen 650 mg Q6HP PRN PO 02/18/25 12:30 Acetaminophen/ Hydrocodone Bitart 1 tab Q6HPRN PRN PO 02/18/25 12:30 02/19/25 20:15 1 TAB Ondansetron HCl 4 mg Q6HPRN PRN IV 02/18/25 12:30 Norepinephrine Bitartrate 250 ml @ 3.75 mls/hr Q24H IV 02/18/25 13:45 02/19/25 07:00 7.5 MLS/HR Potassium Chloride/Dextrose/ Sod Cl 1,000 ml @ 150 mls/hr Q6H40M IV 02/18/25 14:30 UNV Lactated Ringer's 1,000 ml @ 75 mls/hr [id number] IV 02/19/25 13:15 02/20/25 09:50 75 MLS/HR Laboratory Results Laboratory Tests 02/20/25 03:00 Chemistry Test 02/20/25 03:00 Albumin 3.4 g/dL (3.2-4.8) Calcium Level 7.9 mg/dL (8.7-10.4) L Total Protein 5.2 g/dL (5.7-8.2) L Coagulation Test 02/20/25 03:00 Prothrombin Time 11.0 sec (9.3-11.8) Prothrombin Time INR 1.04 (0.9-1.15) Activated Partial Thromboplast Time 23.9 SEC (24.5-34.5) L LFT Test 02/20/25 03:00 Alanine Aminotransferase (ALT) 27 U/L (7-40) Alkaline Phosphatase 32 U/L (46-116) L Aspartate Amino Transferase (AST) 31 U/L (13-40) Total Bilirubin 0.4 mg/dL (0.2-1.0) Urinalysis Test 02/17/25 12:20 Urine Color Yellow (Yellow) Urine Clarity Clear (Clear) Urine pH 6.0 (5.0-9.0) Urine Specific [place] 1.029 (1.001-1.035) Urine Protein Negative (Negative) Urine Ketones Negative (Negative) Urine Blood Negative /uL (Negative) Urine Nitrite Negative (Negative) Urine Bilirubin Negative (Negative) Urine Urobilinogen Normal mg/dL (Negative) Urine Leukocyte Esterase Negative /uL (Negative) Urine RBC 1 /hpf (0 - 3) Urine Microscopic WBC 1 /HPF (0-3) Urine Squamous Epithelial Cells Few /hpf (<5) Urine Bacteria None seen /hpf (None Seen) Urine Mucus Few (None Seen) Urine Glucose Normal mg/dL (Normal) Microbiology Microbiology Date/Time Source Procedure Growth Status 02/18/25 16:36 Nose MRSA Screen - Final Complete Assessment/Plan Assessment/Plan s/p lap cholecystectomy Hypovolemic shock due to bleeding: improving h/o Hep C HTN Obesity Full code Full liquids PLAN: Off Levophed Monitor Hb Downgrade to [facility] Taper O2 off as tolerated Plan discussed with: Patient Date of Service: Feb 20, 2025 Billing Provider: LLOYD SZYMANSKI MD Common Visit Codes: [id number] INP/OBS CARE(HIGH) LLOYD SZYMANSKI MD Feb 20, 2025 16:31
[2025-02-21] VITALS (34 sets, daily range): BP systolic 96–139; BP diastolic 62–87; PULSE 66–90; RESP 13–26; TEMP 97.1–98.8; O2SAT 89–98
[2025-02-21 07:10] LABS: Hematocrit 24.9 % (41.0-53.0); Hemoglobin 8.7 g/dL (13.5-17.5); Mean Corpuscular Hemoglobin 31.6 pg (28.0-32.0); Mean Corpuscular Volume 90.8 fL (80.0-100.0); Nucleated Red Blood Cells % 0.0 %
[2025-02-21 07:28] LABS: Alanine Aminotransferase 23 U/L (7-40); Albumin 3.7 g/dL (3.2-4.8); Anion Gap 8 (5-15); BUN/Creatinine Ratio 14.1 (10.0-20.0); Blood Urea Nitrogen 11 mg/dL (9-23); Carbon Dioxide 29 mmol/L (20-31); Chloride 103 mmol/L (98-107); Glucose 105 mg/dL (74-106); Magnesium 2.0 mg/dL (1.6-2.6); Potassium 3.8 mmol/L (3.5-5.1); Sodium 140 mmol/L (136-145); Total Protein 5.7 g/dL (5.7-8.2)
[2025-02-21 07:29] LABS: Alkaline Phosphatase 35 U/L (46-116); Bilirubin, Total 0.4 mg/dL (0.2-1.0); Calcium 8.3 mg/dL (8.7-10.4)
--- NOTE | 2025-02-21 09:20 | DVHPN2 ---
Progress Note Date Seen: Feb 21, 2025 Medical Necessity Reason Pt with a Central, PICC or Fol: Yes The following are medically ne: Central Line Objective vital signs Vital Sign Date Time Temp Pulse Resp B/P (MAP) Pulse Ox O2 Delivery O2 Flow Rate FiO2 02/21/25 08:42 74 19 117/73 02/21/25 06:30 98 02/21/25 06:00 Nasal Cannula* 4 36 02/21/25 04:00 97.9 97.9 Total Intake and Output 02/20/25 02/20/25 02/21/25 15:00 23:00 07:00 Intake Total 757.50 ml 425 ml 540 ml Output Total 2040 ml 755 ml Balance 757.50 ml -1615 ml -215 ml medications Current Medications Medications Dose Ordered Sig/Liz Route Start Time Stop Time Status Last Admin Dose Admin Cefazolin Sodium/ Dextrose 50 ml @ 50 mls/hr Q8HR IV 02/18/25 14:00 02/21/25 05:43 50 MLS/HR Metronidazole 100 ml @ 100 mls/hr Q8HR IV 02/18/25 14:00 02/21/25 05:43 100 MLS/HR Hydromorphone HCl 1 mg Q3HPRN PRN IV 02/18/25 09:45 02/21/25 08:12 1 MG Pantoprazole Sodium 40 mg DAILY IV 02/18/25 10:00 02/21/25 08:10 40 MG Acetaminophen 650 mg Q6HP PRN PO 02/18/25 12:30 Acetaminophen/ Hydrocodone Bitart 1 tab Q6HPRN PRN PO 02/18/25 12:30 02/19/25 20:15 1 TAB Ondansetron HCl 4 mg Q6HPRN PRN IV 02/18/25 12:30 Norepinephrine Bitartrate 250 ml @ 3.75 mls/hr Q24H IV 02/18/25 13:45 02/19/25 07:00 7.5 MLS/HR Potassium Chloride/Dextrose/ Sod Cl 1,000 ml @ 150 mls/hr Q6H40M IV 02/18/25 14:30 UNV Lactated Ringer's 1,000 ml @ 75 mls/hr [id number] IV 02/19/25 13:15 02/20/25 09:50 75 MLS/HR laboratory and microbiology Laboratory Tests 02/21/25 06:10 Test 02/21/25 06:10 Range/Units Serum Glucose 105 74-106 mg/dL Problem List/Assessment/Plan Problem List/Assessment/Plan 02/18/25i was called at about 1400 hours that the patient's BP was lower than desired, repeat cbc showed significant drop(patient received 4 liters of crystalloid during and immediately after operation.I came to check in onm the patient at about 14:30, he was comfortable,heart rate in the 90's bp[ in the 87 to 95 range./ he was started on Levophed at maintained BP in the 80 to 90 systolic on 7 to 8micrograms of levophed. I ordered a unit of blood and he is now maintaining BP of 102 /67. i also gave 20 mg Lasix and he is putting out dilute urine. we were able to decrease the Levophed to 4 and he is maintains BP of 103 //65 with heart rate of 95. CXR showed slight volume overload prior to Lasix administration. I removed his dressing and inspected the wounds, slight bloody drainage from around the RADHA drain. abdomen is soft, non distended and appropriately tender, I attempted to call his daughter but call went unanswered. 02/20/25 improved, h/h stable, drainage sanguineous, patient is hungry requesting food, abdomen appropriately tender, will transfer to [facility] and allow full liquids 02/21/25 feels well, is hungry, wounds ok, abdomen soft and non distended, appropriately tender. advance diet, increase ambulation, DC planning for Sunday Plan discussed with: Patient KUSH CORNELIUS MD Feb 21, 2025 09:20
--- NOTE | 2025-02-21 10:26 | DVHPN2 ---
Subjective Doing well No new complaints Changes from previous H/P or p: Changes Objective Vitals Vital Signs Date Time Temp Pulse Resp B/P (MAP) Pulse Ox O2 Delivery O2 Flow Rate FiO2 02/21/25 08:42 74 19 117/73 02/21/25 06:30 98 02/21/25 06:00 Nasal Cannula* 4 36 02/21/25 04:00 97.9 97.9 Intake/Output Intake and Output 02/21/25 07:00 Intake Total 1722.50 ml Output Total 2795 ml Balance -1072.50 ml Intake Oral 590 ml IV Total 1132.50 ml Output Urine Total 2750 ml Drainage Total 45 ml General Appearance: Alert, Oriented X3, Cooperative, No acute distress Lungs: Clear to auscultation, Normal air movement Cardiovascular: Regular rate, Normal S1, Normal S2, No murmurs Abdomen: Normal bowel sounds, Soft, No tenderness Extremities: No edema Medications Current Medications Medications Dose Ordered Sig/Liz Route Start Time Stop Time Status Last Admin Dose Admin Cefazolin Sodium/ Dextrose 50 ml @ 50 mls/hr Q8HR IV 02/18/25 14:00 02/21/25 05:43 50 MLS/HR Metronidazole 100 ml @ 100 mls/hr Q8HR IV 02/18/25 14:00 02/21/25 05:43 100 MLS/HR Hydromorphone HCl 1 mg Q3HPRN PRN IV 02/18/25 09:45 02/21/25 08:12 1 MG Pantoprazole Sodium 40 mg DAILY IV 02/18/25 10:00 02/21/25 08:10 40 MG Acetaminophen 650 mg Q6HP PRN PO 02/18/25 12:30 Acetaminophen/ Hydrocodone Bitart 1 tab Q6HPRN PRN PO 02/18/25 12:30 02/19/25 20:15 1 TAB Ondansetron HCl 4 mg Q6HPRN PRN IV 02/18/25 12:30 Norepinephrine Bitartrate 250 ml @ 3.75 mls/hr Q24H IV 02/18/25 13:45 02/19/25 07:00 7.5 MLS/HR Potassium Chloride/Dextrose/ Sod Cl 1,000 ml @ 150 mls/hr Q6H40M IV 02/18/25 14:30 UNV Lactated Ringer's 1,000 ml @ 75 mls/hr [id number] IV 02/19/25 13:15 02/20/25 09:50 75 MLS/HR Laboratory Results Laboratory Tests 02/21/25 06:10 Chemistry Test 02/21/25 06:10 Albumin 3.7 g/dL (3.2-4.8) Calcium Level 8.3 mg/dL (8.7-10.4) L Magnesium Level 2.0 mg/dL (1.6-2.6) Total Protein 5.7 g/dL (5.7-8.2) LFT Test 02/21/25 06:10 Alanine Aminotransferase (ALT) 23 U/L (7-40) Alkaline Phosphatase 35 U/L (46-116) L Aspartate Amino Transferase (AST) 27 U/L (13-40) Total Bilirubin 0.4 mg/dL (0.2-1.0) Urinalysis Test 02/17/25 12:20 Urine Color Yellow (Yellow) Urine Clarity Clear (Clear) Urine pH 6.0 (5.0-9.0) Urine Specific [place] 1.029 (1.001-1.035) Urine Protein Negative (Negative) Urine Ketones Negative (Negative) Urine Blood Negative /uL (Negative) Urine Nitrite Negative (Negative) Urine Bilirubin Negative (Negative) Urine Urobilinogen Normal mg/dL (Negative) Urine Leukocyte Esterase Negative /uL (Negative) Urine RBC 1 /hpf (0 - 3) Urine Microscopic WBC 1 /HPF (0-3) Urine Squamous Epithelial Cells Few /hpf (<5) Urine Bacteria None seen /hpf (None Seen) Urine Mucus Few (None Seen) Urine Glucose Normal mg/dL (Normal) Microbiology Microbiology Date/Time Source Procedure Growth Status 02/18/25 16:36 Nose MRSA Screen - Final Complete Assessment/Plan Assessment/Plan s/p lap cholecystectomy Hypovolemic shock due to bleeding: improving h/o Hep C HTN Obesity Full code Full liquids PLAN: Off Levophed Monitor Hb Downgrade to [facility] Taper O2 off as tolerated 02/21/2025: Continue the current management Tapered the oxygen down as tolerated He is on 5 L nasal cannula now Hemoglobin is stable at 8.7 Downgrade to telemetry Plan discussed with: Patient Date of Service: Feb 21, 2025 Billing Provider: LLOYD SZYMANSKI MD Common Visit Codes: [id number] INP/OBS CARE(HIGH) LLOYD SZYMANSKI MD Feb 21, 2025 10:26
--- NOTE | 2025-02-21 14:22 | DVHSR ---
APPROVED REPORT EXAM: Two-dimensional and M-mode echocardiogram with Doppler and color Doppler. Blood Pressure: 107/53 mmHg INDICATION CHF RISK FACTORS Height: 5' 7", Weight: 238 DIMENSIONS LVDd4.1 (3.8-5.7cm)LA (2D)3.5 (1.9-4.0cm)Aortic Root3.3 (2.0-3.7cm) LVDs3.1 (2.5-4.0cm)LA (MM) (1.9-4.0cm)Aortic Cusp Exc1.9 (1.5-2.0cm) EF (%) 50.0 (55-70%)Rt. Atrium3.4 (1.9-4.0cm)Asc. Aorta cm IVSd1.4 (0.7-1.1cm)RV (D) (1.8-2.4cm) PWd1.2 (0.7-1.1cm) Mitral Valve MitralMitral Stenosis E wave0.70m/sMV Mean GR.mmHg A wave0.70m/sMV Peak GR.mmHg E/A ratio1.02D MVAcm2 Aortic Valve Aortic ValveAortic Stenosis V10.90m/Patrick Mean GR.2mmHg V21.00m/Patrick Peak GR.4mmHg LVOT Diameter2.2 (1.8-2.4cm)Doppler AVA3.42cm2 Pulmonic Valve V20.70m/s Conclusion NORMAL LV EF AND IS 65% NORMAL VALVES NORMAL RV FUNCTION NO EFFUSION
[2025-02-22] VITALS (7 sets, daily range): BP systolic 111–116; BP diastolic 75–79; PULSE 69–89; RESP 16–18; TEMP 97.5–98.4; O2SAT 87–97
[2025-02-22 06:34] LABS: Hematocrit 25.1 % (41.0-53.0); Hemoglobin 8.8 g/dL (13.5-17.5); Mean Corpuscular Hemoglobin 31.9 pg (28.0-32.0); Mean Corpuscular Volume 90.4 fL (80.0-100.0); Nucleated Red Blood Cells % 0.0 %
[2025-02-22 06:57] LABS: Alanine Aminotransferase 21 U/L (7-40); Albumin 3.7 g/dL (3.2-4.8); Anion Gap 8 (5-15); BUN/Creatinine Ratio 17.3 (10.0-20.0); Bilirubin, Total 0.6 mg/dL (0.2-1.0); Blood Urea Nitrogen 14 mg/dL (9-23); Carbon Dioxide 28 mmol/L (20-31); Chloride 103 mmol/L (98-107); Glucose 94 mg/dL (74-106); Potassium 4.0 mmol/L (3.5-5.1); Sodium 139 mmol/L (136-145); Total Protein 5.7 g/dL (5.7-8.2)
[2025-02-22 07:00] LABS: Alkaline Phosphatase 35 U/L (46-116); Calcium 8.5 mg/dL (8.7-10.4)
--- NOTE | 2025-02-22 10:28 | DVHPN2 ---
Progress Note Date Seen: Feb 22, 2025 Medical Necessity Reason Pt with a Central, PICC or Fol: Yes The following are medically ne: Central Line Objective vital signs Vital Sign Date Time Temp Pulse Resp B/P (MAP) Pulse Ox O2 Delivery O2 Flow Rate FiO2 02/22/25 09:00 97.9 72 18 112/75 (87) 96 97.9 02/22/25 08:00 Nasal Cannula* 3 32 Total Intake and Output 02/21/25 02/21/25 02/22/25 15:00 23:00 07:00 Intake Total 500 ml 0 ml Output Total 1155 ml 550 ml Balance -655 ml -550 ml medications Current Medications Medications Dose Ordered Sig/Liz Route Start Time Stop Time Status Last Admin Dose Admin Cefazolin Sodium/ Dextrose 50 ml @ 50 mls/hr Q8HR IV 02/18/25 14:00 02/22/25 05:08 50 MLS/HR Metronidazole 100 ml @ 100 mls/hr Q8HR IV 02/18/25 14:00 02/22/25 06:41 100 MLS/HR Hydromorphone HCl 1 mg Q3HPRN PRN IV 02/18/25 09:45 02/22/25 06:42 1 MG Pantoprazole Sodium 40 mg DAILY IV 02/18/25 10:00 02/22/25 09:49 40 MG Acetaminophen 650 mg Q6HP PRN PO 02/18/25 12:30 Acetaminophen/ Hydrocodone Bitart 1 tab Q6HPRN PRN PO 02/18/25 12:30 02/21/25 23:50 1 TAB Ondansetron HCl 4 mg Q6HPRN PRN IV 02/18/25 12:30 Potassium Chloride/Dextrose/ Sod Cl 1,000 ml @ 150 mls/hr Q6H40M IV 02/18/25 14:30 UNV Lactated Ringer's 1,000 ml @ 75 mls/hr [id number] IV 02/19/25 13:15 02/20/25 09:50 75 MLS/HR laboratory and microbiology Laboratory Tests 02/22/25 05:24 Test 02/22/25 05:24 Range/Units Serum Glucose 94 74-106 mg/dL Problem List/Assessment/Plan Problem List/Assessment/Plan 02/18/25i was called at about 1400 hours that the patient's BP was lower than desired, repeat cbc showed significant drop(patient received 4 liters of crystalloid during and immediately after operation.I came to check in onm the patient at about 14:30, he was comfortable,heart rate in the 90's bp[ in the 87 to 95 range./ he was started on Levophed at maintained BP in the 80 to 90 systolic on 7 to 8micrograms of levophed. I ordered a unit of blood and he is now maintaining BP of 102 /67. i also gave 20 mg Lasix and he is putting out dilute urine. we were able to decrease the Levophed to 4 and he is maintains BP of 103 //65 with heart rate of 95. CXR showed slight volume overload prior to Lasix administration. I removed his dressing and inspected the wounds, slight bloody drainage from around the RADHA drain. abdomen is soft, non distended and appropriately tender, I attempted to call his daughter but call went unanswered. 02/20/25 improved, h/h stable, drainage sanguineous, patient is hungry requesting food, abdomen appropriately tender, will transfer to [facility] and allow full liquids 02/21/25 feels well, is hungry, wounds ok, abdomen soft and non distended, appropriately tender. advance diet, increase ambulation, DC planning for Sunday02/22/25 FEELS VERY WELL, NO NAUSEA, PAIN IMPROVING DRAINAGE decreasing, h/h stable. will dc Louis, may be discharged tomorrow Plan discussed with: Patient Dietary Evaluation Review Recommendations by RD: Protein Supplementation Comments: 1) Initiate Ensure High Protein qd 2) Encourage optimal PO intake 3) Advance to low-fat diet when medically feasible 4) Refer to outpatient RD for weight management 5) Follow-up with gastroenterology 6) Continue to monitor I&O, labs, and skin integrity Expected Outcomes/Goals: 1) appetite and labs to improve 2) diet to advance 3) f/u in 3-5 days KUSH CORNELIUS MD Feb 22, 2025 10:28
--- NOTE | 2025-02-22 10:54 | DVHPN2 ---
Subjective Doing well No new complaints He is on 4 L nasal cannula Changes from previous H/P or p: Changes Objective Vitals Vital Signs Date Time Temp Pulse Resp B/P (MAP) Pulse Ox O2 Delivery O2 Flow Rate FiO2 02/22/25 10:19 72 18 112/75 02/22/25 09:00 97.9 96 97.9 02/22/25 08:00 Nasal Cannula* 3 32 Intake/Output Intake and Output 02/22/25 07:00 Intake Total 500 ml Output Total 1705 ml Balance -1205 ml Intake Oral 350 ml IV Total 150 ml Output Urine Total 1700 ml Drainage Total 5 ml General Appearance: Alert, Oriented X3, Cooperative, No acute distress Lungs: Clear to auscultation, Normal air movement Cardiovascular: Regular rate, Normal S1, Normal S2, No murmurs Abdomen: Normal bowel sounds, Soft, No tenderness Extremities: No edema Medications Current Medications Medications Dose Ordered Sig/Liz Route Start Time Stop Time Status Last Admin Dose Admin Cefazolin Sodium/ Dextrose 50 ml @ 50 mls/hr Q8HR IV 02/18/25 14:00 02/22/25 05:08 50 MLS/HR Metronidazole 100 ml @ 100 mls/hr Q8HR IV 02/18/25 14:00 02/22/25 06:41 100 MLS/HR Hydromorphone HCl 1 mg Q3HPRN PRN IV 02/18/25 09:45 02/22/25 10:19 1 MG Pantoprazole Sodium 40 mg DAILY IV 02/18/25 10:00 02/22/25 09:49 40 MG Acetaminophen 650 mg Q6HP PRN PO 02/18/25 12:30 Acetaminophen/ Hydrocodone Bitart 1 tab Q6HPRN PRN PO 02/18/25 12:30 02/21/25 23:50 1 TAB Ondansetron HCl 4 mg Q6HPRN PRN IV 02/18/25 12:30 Potassium Chloride/Dextrose/ Sod Cl 1,000 ml @ 150 mls/hr Q6H40M IV 02/18/25 14:30 UNV Lactated Ringer's 1,000 ml @ 75 mls/hr [id number] IV 02/19/25 13:15 02/20/25 09:50 75 MLS/HR Laboratory Results Laboratory Tests 02/22/25 05:24 Chemistry Test 02/22/25 05:24 Albumin 3.7 g/dL (3.2-4.8) Calcium Level 8.5 mg/dL (8.7-10.4) L Total Protein 5.7 g/dL (5.7-8.2) LFT Test 02/22/25 05:24 Alanine Aminotransferase (ALT) 21 U/L (7-40) Alkaline Phosphatase 35 U/L (46-116) L Aspartate Amino Transferase (AST) 29 U/L (13-40) Total Bilirubin 0.6 mg/dL (0.2-1.0) Urinalysis Test 02/17/25 12:20 Urine Color Yellow (Yellow) Urine Clarity Clear (Clear) Urine pH 6.0 (5.0-9.0) Urine Specific [place] 1.029 (1.001-1.035) Urine Protein Negative (Negative) Urine Ketones Negative (Negative) Urine Blood Negative /uL (Negative) Urine Nitrite Negative (Negative) Urine Bilirubin Negative (Negative) Urine Urobilinogen Normal mg/dL (Negative) Urine Leukocyte Esterase Negative /uL (Negative) Urine RBC 1 /hpf (0 - 3) Urine Microscopic WBC 1 /HPF (0-3) Urine Squamous Epithelial Cells Few /hpf (<5) Urine Bacteria None seen /hpf (None Seen) Urine Mucus Few (None Seen) Urine Glucose Normal mg/dL (Normal) Microbiology Microbiology Date/Time Source Procedure Growth Status 02/18/25 16:36 Nose MRSA Screen - Final Complete Assessment/Plan Assessment/Plan s/p lap cholecystectomy Hypovolemic shock due to bleeding: improving h/o Hep C HTN Obesity Full code Full liquids PLAN: Off Levophed Monitor Hb Downgrade to [facility] Taper O2 off as tolerated 02/21/2025: Continue the current management Tapered the oxygen down as tolerated He is on 5 L nasal cannula now Hemoglobin is stable at 8.7 Downgrade to telemetry 02/22/2025: Tapered down the oxygen as tolerated Out of bed as tolerated Monitor closely Hemoglobin is 8.8 today Discharge planning once he is off the oxygen Plan discussed with: Patient My Orders Orders - LLOYD SZYMANSKI MD Procedure Category Date Status Time Notify Provider NOTICE 02/21/25 Transmitted Malnutrition 15:04 Nutritional NOURISH 02/21/25 Transmitted Supplements 15:04 Dietary NOTICE 02/21/25 Transmitted Recommendations 15:04 Date of Service: Feb 22, 2025 Billing Provider: LLOYD SZYMANSKI MD Common Visit Codes: [id number] INP/OBS CARE(HIGH) LLOYD SZYMANSKI MD Feb 22, 2025 10:54
[2025-02-23] VITALS (9 sets, daily range): BP systolic 116–133; BP diastolic 78–92; PULSE 74–93; RESP 16–20; TEMP 97.6–98.7; O2SAT 86–91
--- NOTE | 2025-02-23 09:14 | DVHPN2 ---
Subjective Date Seen: Feb 23, 2025 Post op day Post op day: 5 Patient reports: No new complaints General: Normal HNT: Normal Cardiovascular: Normal Respiratory: Normal Gastrointestinal: Normal Genitourinary: Normal Musculoskeletal: Normal Neurological: Normal Objective Vitals Vital Sign Date Time Temp Pulse Resp B/P (MAP) Pulse Ox O2 Delivery O2 Flow Rate FiO2 02/23/25 07:33 18 Room Air* 0 21 02/23/25 05:00 98.4 79 133/90 (104) 87 98.4 Total Intake and Output 02/22/25 02/22/25 02/23/25 15:00 23:00 07:00 Intake Total 250 ml 410 ml 1150 ml Output Total 500 ml 175 ml 5 ml Balance -250 ml 235 ml 1145 ml Medications Current Medications Medications Dose Ordered Sig/Liz Route Start Time Stop Time Status Last Admin Dose Admin Cefazolin Sodium/ Dextrose 50 ml @ 50 mls/hr Q8HR IV 02/18/25 14:00 02/23/25 05:15 50 MLS/HR Metronidazole 100 ml @ 100 mls/hr Q8HR IV 02/18/25 14:00 02/23/25 06:03 100 MLS/HR Hydromorphone HCl 1 mg Q3HPRN PRN IV 02/18/25 09:45 02/23/25 04:29 1 MG Pantoprazole Sodium 40 mg DAILY IV 02/18/25 10:00 02/23/25 08:09 40 MG Acetaminophen 650 mg Q6HP PRN PO 02/18/25 12:30 Acetaminophen/ Hydrocodone Bitart 1 tab Q6HPRN PRN PO 02/18/25 12:30 02/23/25 08:15 1 TAB Ondansetron HCl 4 mg Q6HPRN PRN IV 02/18/25 12:30 Potassium Chloride/Dextrose/ Sod Cl 1,000 ml @ 150 mls/hr Q6H40M IV 02/18/25 14:30 UNV Lactated Ringer's 1,000 ml @ 75 mls/hr [id number] IV 02/19/25 13:15 02/20/25 09:50 75 MLS/HR General: Normal, Well developed Head/Eyes: Normal ENT: Normal Neck: Normal Lungs: Normal Cardiovascular: Normal Abdominal: Normal, Soft Neurological: Normal Labs and Microbiology Laboratory Tests 02/22/25 05:24 Test 02/22/25 05:24 Range/Units Serum Glucose 94 74-106 mg/dL Ass/Plan Labs and/or images reviewed: Labs reviewed by me Problem List 02/18/25i was called at about 1400 hours that the patient's BP was lower than desired, repeat cbc showed significant drop(patient received 4 liters of crystalloid during and immediately after operation.I came to check in onm the patient at about 14:30, he was comfortable,heart rate in the 90's bp[ in the 87 to 95 range./ he was started on Levophed at maintained BP in the 80 to 90 systolic on 7 to 8micrograms of levophed. I ordered a unit of blood and he is now maintaining BP of 102 /67. i also gave 20 mg Lasix and he is putting out dilute urine. we were able to decrease the Levophed to 4 and he is maintains BP of 103 //65 with heart rate of 95. CXR showed slight volume overload prior to Lasix administration. I removed his dressing and inspected the wounds, slight bloody drainage from around the RADHA drain. abdomen is soft, non distended and appropriately tender, I attempted to call his daughter but call went unanswered. 02/20/25 improved, h/h stable, drainage sanguineous, patient is hungry requesting food, abdomen appropriately tender, will transfer to [facility] and allow full liquids 02/21/25 feels well, is hungry, wounds ok, abdomen soft and non distended, appropriately tender. advance diet, increase ambulation, DC planning for Sunday02/22/25 FEELS VERY WELL, NO NAUSEA, PAIN IMPROVING DRAINAGE decreasing, h/h stable. will dc [facility], may be discharged tomorrow Assessment/Plan s/p laparoscopic cholecystectomy POD#1 Subjective: - The patient reports feeling better and has no new complaints. Objective: - H and H are stable. - The abdomen is soft, nondistended, and appropriately tender. - The abdominal wound is dry and intact. - The RADHA drain has approximately 40cc of sanguineous fluid. - The drainage from the RADHA site on the side of the abdomen has been decreasing since yesterday. Plan: - Continue the current treatment plan. - A CBC and CMP are scheduled for tomorrow morning. s/p laparoscopic cholecystectomy POD#5 Complaints: - No new complaints. Review of Systems: - The patient denies nausea and vomiting. - The patient is tolerating their diet, having normal bowel movements, and passing gas. - The patient stated they are no longer on oxygen and their saturation levels are satisfactory. Physical Exam: - The patient was observed sitting up in bed and eating breakfast. - The abdomen is soft, non-distended, and non-tender. - A RADHA drain is in place with approximately 10 cc of sanguineous fluid output. Assessment: - The patient reports being ready for discharge. - Following a review of the patient's notes and labs, and after a discussion with Dr. Duron, the patient is deemed medically appropriate for discharge from a surgical perspective. Plan: - The patient is to be discharged home. - please send home with 300 mg po of oral iron three times a day. - The patient is advised to drink plenty of water. - The patient is to wear an abdominal binder continuously. - The patient is permitted to shower. - patient to contact the clinic with any concerns. - follow-up appointment in the surgery clinic in one week. Prognosis: Good Plan discussed with Dr. Simon, Patient Visit Coding Surgery Date of Service if different f: Feb 23, 2025 Billing Provider: KUSH SIMON MD Surgery Visit Codes: [id number] INP/OBS CARE(HIGH) CINTIA WALTON PROCESSING OPERATOR Feb 23, 2025 09:14
[2025-02-23 10:37] LABS: Hematocrit 26.9 % (41.0-53.0); Hemoglobin 9.3 g/dL (13.5-17.5); Mean Corpuscular Hemoglobin 31.6 pg (28.0-32.0); Mean Corpuscular Volume 91.1 fL (80.0-100.0); Nucleated Red Blood Cells % 0.1 %
--- NOTE | 2025-02-23 11:56 | DVHPN2 ---
Progress Note Date Seen: Feb 23, 2025 Medical Necessity Reason Pt with a Central, PICC or Fol: Yes The following are medically ne: Central Line Subjective Patient reports: No new complaints Review of Systems: HEENT:Normal, CVS:Normal, RESPIRATORY:Normal, GI:Normal, :Normal, MSK:Normal, NEURO:Normal Objective vital signs Vital Sign Date Time Temp Pulse Resp B/P (MAP) Pulse Ox O2 Delivery O2 Flow Rate FiO2 02/23/25 09:00 98.5 74 16 128/82 (97) 90 98.5 02/23/25 07:33 Room Air* 0 21 Total Intake and Output 02/22/25 02/22/25 02/23/25 15:00 23:00 07:00 Intake Total 250 ml 410 ml 1150 ml Output Total 500 ml 175 ml 5 ml Balance -250 ml 235 ml 1145 ml medications Current Medications Medications Dose Ordered Sig/Liz Route Start Time Stop Time Status Last Admin Dose Admin Cefazolin Sodium/ Dextrose 50 ml @ 50 mls/hr Q8HR IV 02/18/25 14:00 02/23/25 05:15 50 MLS/HR Metronidazole 100 ml @ 100 mls/hr Q8HR IV 02/18/25 14:00 02/23/25 06:03 100 MLS/HR Hydromorphone HCl 1 mg Q3HPRN PRN IV 02/18/25 09:45 02/23/25 04:29 1 MG Pantoprazole Sodium 40 mg DAILY IV 02/18/25 10:00 02/23/25 08:09 40 MG Acetaminophen 650 mg Q6HP PRN PO 02/18/25 12:30 Acetaminophen/ Hydrocodone Bitart 1 tab Q6HPRN PRN PO 02/18/25 12:30 02/23/25 08:15 1 TAB Ondansetron HCl 4 mg Q6HPRN PRN IV 02/18/25 12:30 Potassium Chloride/Dextrose/ Sod Cl 1,000 ml @ 150 mls/hr Q6H40M IV 02/18/25 14:30 UNV Lactated Ringer's 1,000 ml @ 75 mls/hr [id number] IV 02/19/25 13:15 02/20/25 09:50 75 MLS/HR Examination: GENERAL:Normal, HEENT:Normal, NECK:Normal, LUNGS:Normal, CVS:Normal, ABDOMEN:Normal, ABDOMEN:Abnormal (leila drain), MSK:Normal, SKIN:Normal, NEURO:Normal, :Normal laboratory and microbiology Laboratory Tests 02/23/25 09:30 02/22/25 05:24 Test 02/22/25 05:24 Range/Units Serum Glucose 94 74-106 mg/dL Microbiology Date/Time Source Procedure Growth Status 02/18/25 16:36 Nose MRSA Screen - Final Complete Problem List/Assessment/Plan Problem List/Assessment/Plan * Hypertension, for which the patient's blood pressure will be monitored. * History of hepatitis C- treated * Obesity. * Status post laparoscopic cholecystectomy for cholelithiasis and chronic cholecystitis. * bleeding with likely hypovolemic shock: ivf, blood transfusion, iv antibiotics * Advanced care planning. The patient is a full code-Time spent is 18 minutes. Plan discussed with: Patient My Orders My Orders Orders - ROMANA LANDAVERDE MD Procedure Category Date Status Time Complete Blood Count LAB 02/24/25 Verified 06:00 PTPTT LAB 02/24/25 Verified 04:00 Dietary Evaluation Review Recommendations by RD: Protein Supplementation Comments: 1) Initiate Ensure High Protein qd 2) Encourage optimal PO intake 3) Advance to low-fat diet when medically feasible 4) Refer to outpatient RD for weight management 5) Follow-up with gastroenterology 6) Continue to monitor I&O, labs, and skin integrity Expected Outcomes/Goals: 1) appetite and labs to improve 2) diet to advance 3) f/u in 3-5 days Date of Service: Feb 23, 2025 Billing Provider: ROMANA LANDAVERDE MD Common Visit Codes: [id number] INP/OBS CARE(HIGH) ROMANA LANDAVERDE MD Feb 23, 2025 11:56
[2025-02-23 14:38] LABS: Hematocrit 28.5 % (41.0-53.0); Hemoglobin 9.9 g/dL (13.5-17.5); Mean Corpuscular Hemoglobin 31.8 pg (28.0-32.0); Mean Corpuscular Volume 91.7 fL (80.0-100.0); Nucleated Red Blood Cells % 0.2 %
--- NOTE | 2025-02-23 15:31 | DVHPN2 ---
Subjective Date Seen: Feb 23, 2025 Post op day Post op day: 5 Patient reports: No new complaints General: Normal HNT: Normal Cardiovascular: Normal Respiratory: Normal Gastrointestinal: Normal Genitourinary: Normal Musculoskeletal: Normal Neurological: Normal Objective Vitals Vital Sign Date Time Temp Pulse Resp B/P (MAP) Pulse Ox O2 Delivery O2 Flow Rate FiO2 02/23/25 13:59 97.6 87 16 124/92 (103) 91 97.6 02/23/25 07:33 Room Air* 0 21 Total Intake and Output 02/22/25 02/22/25 02/23/25 15:00 23:00 07:00 Intake Total 250 ml 410 ml 1150 ml Output Total 500 ml 175 ml 5 ml Balance -250 ml 235 ml 1145 ml Medications Current Medications Medications Dose Ordered Sig/Liz Route Start Time Stop Time Status Last Admin Dose Admin Cefazolin Sodium/ Dextrose 50 ml @ 50 mls/hr Q8HR IV 02/18/25 14:00 02/23/25 13:04 50 MLS/HR Metronidazole 100 ml @ 100 mls/hr Q8HR IV 02/18/25 14:00 02/23/25 13:03 100 MLS/HR Hydromorphone HCl 1 mg Q3HPRN PRN IV 02/18/25 09:45 02/23/25 04:29 1 MG Pantoprazole Sodium 40 mg DAILY IV 02/18/25 10:00 02/23/25 08:09 40 MG Acetaminophen 650 mg Q6HP PRN PO 02/18/25 12:30 Acetaminophen/ Hydrocodone Bitart 1 tab Q6HPRN PRN PO 02/18/25 12:30 02/23/25 14:36 1 TAB Ondansetron HCl 4 mg Q6HPRN PRN IV 02/18/25 12:30 Potassium Chloride/Dextrose/ Sod Cl 1,000 ml @ 150 mls/hr Q6H40M IV 02/18/25 14:30 UNV Lactated Ringer's 1,000 ml @ 75 mls/hr [id number] IV 02/19/25 13:15 02/20/25 09:50 75 MLS/HR General: Normal, Well developed Head/Eyes: Normal ENT: Normal Neck: Normal Lungs: Normal Cardiovascular: Normal Abdominal: Normal, Soft Neurological: Normal Labs and Microbiology Laboratory Tests 02/23/25 14:03 02/22/25 05:24 Test 02/22/25 05:24 Range/Units Serum Glucose 94 74-106 mg/dL Ass/Plan Labs and/or images reviewed: Labs reviewed by me Problem List * Hypertension, for which the patient's blood pressure will be monitored. * History of hepatitis C- treated * Obesity. * Status post laparoscopic cholecystectomy for cholelithiasis and chronic cholecystitis. * bleeding with likely hypovolemic shock: ivf, blood transfusion, iv antibiotics * Advanced care planning. The patient is a full code-Time spent is 18 minutes. Assessment/Plan s/p laparoscopic cholecystectomy POD#1 Subjective: - The patient reports feeling better and has no new complaints. Objective: - H and H are stable. - The abdomen is soft, nondistended, and appropriately tender. - The abdominal wound is dry and intact. - The RADHA drain has approximately 40cc of sanguineous fluid. - The drainage from the RADHA site on the side of the abdomen has been decreasing since yesterday. Plan: - Continue the current treatment plan. - A CBC and CMP are scheduled for tomorrow morning. s/p laparoscopic cholecystectomy POD#5 Complaints: - No new complaints. Review of Systems: - The patient denies nausea and vomiting. - The patient is tolerating their diet, having normal bowel movements, and passing gas. - The patient stated they are no longer on oxygen and their saturation levels are satisfactory. Physical Exam: - The patient was observed sitting up in bed and eating breakfast. - The abdomen is soft, non-distended, and non-tender. - A RADHA drain is in place with approximately 10 cc of sanguineous fluid output. Assessment: - The patient reports being ready for discharge. - Following a review of the patient's notes and labs, and after a discussion with Dr. Duron, the patient is deemed medically appropriate for discharge from a surgical perspective. Plan: - The patient is to be discharged home. - please send home with 300 mg po of oral iron three times a day. - The patient is advised to drink plenty of water. - The patient is to wear an abdominal binder continuously. - The patient is permitted to shower. - patient to contact the clinic with any concerns. - follow-up appointment in the surgery clinic in one week. 02/23/2025 s/p laparoscopic cholecystectomy POD#5 Complaints: - Drainage from the RADHA site. Physical Exam: - No output observed from the RADHA drain. - The gauze dressing was saturated with dark, old-appearing blood. - The RADHA drain was irrigated, and clots were removed. - The RADHA drain is now draining serosanguineous fluid. - new lab ordered at 1400 Hemoglobin is 9.9. Plan: - The patient will wear an abdominal binder continuously . - Dressings to be changed as needed. - Hemoglobin was ordered for tomorrow am - do not discharge will see patient tomorrow Prognosis: Good Plan discussed with Dr. Simon, nurse Visit Coding Surgery Date of Service if different f: Feb 23, 2025 Billing Provider: KUSH SIMON MD Surgery Visit Codes: [id number] INP/OBS CARE(HIGH) CINTIA WALTON NP Feb 23, 2025 15:31
--- NOTE | 2025-02-23 17:53 | DVHCONRES ---
Date Seen: Feb 23, 2025 Resident Creating Document: ANGEL MARAVILLA RESIDENT Reason for Consultation Anemia History of Present Illness * Patient underwent laparoscopic cholecystectomy for cholelithiasis and chronic cholecystitis. * Post-operatively, the course was complicated by bleeding around the RADHA drain site, raising concerns for hypovolemic shock initially. * Currently, the patient reports feeling better, with no abdominal pain, nausea, vomiting, or new complaints. * He is tolerating a regular diet, passing gas, and having normal bowel mov ements. * Denies fevers, chills, or worsening abdominal discomfort. * RADHA drain output has decreased and changed from dark old blood to serosanguinous fluid. * No dizziness or orthostatic symptoms reported. Brief Gist of Todays Progress & Treatment * Hemoglobin and hematocrit have stabilized (Hgb trending up from 8.7 ? 9.9). * Vital signs stable, afebrile, hemodynamically stable. * RADHA drain output minimal with serosanguineous character, no active bleeding observed. * Dressing changed; old clots irrigated and removed. * Feeds: Patient tolerating oral diet without issues. * Antibiotics: Receiving IV Cefazolin and Metronidazole; both continued per surgical protocol. * Protonix 40 mg IV continued for GI mucosal protection. * Blood thinners held due to recent post-op bleeding. ROS * Constitutional: No fever, chills, or weight loss. * GI: Denies nausea, vomiting, abdominal pain, hematemesis, melena, or hematochezia. Reports normal bowel movements. Past Medical History * Hypertension * History of treated hepatitis C * Obesity * Cholelithiasis with chronic cholecystitis Past Surgical History * Laparoscopic cholecystectomy with lysis of adhesions (02/18/2025) Family History Negative Social History Denies smoking or alcohol. Lives at home with his children. Allergies: Coded Allergies: NO KNOWN ALLERGIES (Unverified , 02/12/25) Home Meds Reported Medications Tirzepatide (Zepbound) 5 Mg/0.5 Ml Inj, 5 MG SC, INJ 02/12/25 Fish Oil (Fish Oil) 1,000 Mg Cap, 1000 MG PO, CAP 02/12/25 Multiple Vitamins W/ Minerals (Centrum) Liq, 1 OR, LIQ 02/12/25 Aspirin (Aspirin Low Dose) 81 Mg Chw, 1 TAB PO DAILY, #90 TAB 3 Refills 02/12/25 Lisinopril (Lisinopril) 20 Mg Tab, 1 TAB PO DAILY, #90 TAB 3 Refills 02/12/25 Review of Systems * Constitutional: No fever, chills, or weight loss. * GI: Denies nausea, vomiting, abdominal pain, hematemesis, melena, or hematochezia. Reports normal bowel movements. * Other systems: Negative as per HPI Vital Signs Vital Signs Date Time Temp Pulse Resp B/P (MAP) Pulse Ox O2 Delivery O2 Flow Rate FiO2 02/23/25 17:00 98.7 80 19 132/87 (102) 91 98.7 02/23/25 07:33 Room Air* 0 21 Physical Exam * General: Alert, comfortable, in no distress. * Abdomen: Soft, non-distended, non-tender. Incision sites clean, dry, intact. * RADHA drain: Minimal serosanguinous output, no active bleeding. * Bowel sounds: Present. * Skin: No jaundice or ecchymosis. * Other systems: Unremarkable. Labs/Diagnostic Data Labs Test 02/23/25 14:03 02/22/25 05:24 02/21/25 06:10 02/20/25 03:00 Range/Units White Blood Count 6.7 4.4-10.8 10^3/uL Red Blood Count 3.11 L 4.5-5.90 10^6/uL Hemoglobin 9.9 L 13.5-17.5 g/dL Hematocrit 28.5 L 41.0-53.0 % Mean Corpuscular Volume 91.7 80.0-100.0 fL Mean Corpuscular Hemoglobin 31.8 28.0-32.0 pg Mean Corpuscular Hemoglobin Concent 34.7 32.0-36.0 g/dL Red Cell Distribution Width 14.1 11.8-14.3 % Platelet Count 181 140-450 10^3/uL Mean Platelet Volume 7.7 6.9-10.8 fL Neutrophils (%) (Auto) 77.8 37.0-80.0 % Lymphocytes (%) (Auto) 12.3 10.0-50.0 % Monocytes (%) (Auto) 7.9 0.0-12.0 % Eosinophils (%) (Auto) 1.9 0.0-7.0 % Basophils (%) (Auto) 0.1 0.0-2.0 % Neutrophils # (Auto) 5.2 1.6-8.6 10 ^3/uL Lymphocytes # (Auto) 0.8 0.4-5.4 10 ^3/uL Monocytes # (Auto) 0.5 0-1.3 10 ^3/uL Eosinophils # (Auto) 0.1 0-0.8 10 ^3/uL Basophils # (Auto) 0 0-0.2 10 ^3/uL Nucleated Red Blood Cells 0.2 % Sodium Level 139 136-145 mmol/L Potassium Level 4.0 3.5-5.1 mmol/L Chloride Level 103 98-107 mmol/L Carbon Dioxide Level 28 20-31 mmol/L Anion Gap 8 5-15 Blood Urea Nitrogen 14 9-23 mg/dL Creatinine 0.81 0.700-1.30 mg/dL Glomerular Filtration Rate Calc 101 >90 mL/min BUN/Creatinine Ratio 17.3 10.0-20.0 Serum Glucose 94 74-106 mg/dL Calcium Level 8.5 L 8.7-10.4 mg/dL Total Bilirubin 0.6 0.2-1.0 mg/dL Aspartate Amino Transferase (AST) 29 13-40 U/L Alanine Aminotransferase (ALT) 21 7-40 U/L Alkaline Phosphatase 35 L 46-116 U/L Total Protein 5.7 5.7-8.2 g/dL Albumin 3.7 3.2-4.8 g/dL Magnesium Level 2.0 1.6-2.6 mg/dL Prothrombin Time 11.0 9.3-11.8 sec Prothrombin Time INR 1.04 0.9-1.15 Activated Partial Thromboplast Time 23.9 L 24.5-34.5 SEC Test 02/17/25 12:20 Range/Units Urine Color Yellow Yellow Urine Clarity Clear Clear Urine pH 6.0 5.0-9.0 Urine Specific [place] 1.029 1.001-1.035 Urine Protein Negative Negative Urine Ketones Negative Negative Urine Blood Negative Negative /uL Urine Nitrite Negative Negative Urine Bilirubin Negative Negative Urine Urobilinogen Normal Negative mg/dL Urine Leukocyte Esterase Negative Negative /uL Urine RBC 1 0 - 3 /hpf Urine Microscopic WBC 1 0-3 /HPF Urine Squamous Epithelial Cells Few <5 /hpf Urine Bacteria None seen None Seen /hpf Urine Mucus Few None Seen Urine Glucose Normal Normal mg/dL Microbiology Date/Time Source Procedure Growth Status 02/18/25 16:36 Nose MRSA Screen - Final Complete Assessment * s/p laparoscopic cholecystectomy POD#5, with resolved post-operative bleeding and stable hemoglobin. * Improving clinically with decreasing drain output. * No evidence of ongoing intra-abdominal bleeding or infection. Plan/Recommendation Gastrointestinal 1. Continue Protonix 40 mg IV daily for GI mucosal protection. 2. Monitor RADHA drain output record volume and character every shift. 3. Continue IV antibiotics (Cefazolin + Metronidazole) until final surgical clearance, then reassess need for oral transition. 4. Maintain abdominal binder continuously to support wound healing. 5. Advance diet as tolerated currently tolerating oral feeds well. 6. Monitor bowel function encourage ambulation to promote GI motility. We will continue to monitor the patient closely. Hematology * Continue to monitor CBC daily for hemoglobin stability. * Iron supplementation planned at discharge (PO iron 300 mg TID). * No transfusion indicated at this time. Fluids * Continue maintenance fluids PRN; currently tolerating oral intake well. * Discontinue IV fluids when oral intake is adequate. Prophylaxis * DVT prophylaxis: Hold pharmacologic anticoagulation until no risk of bleeding; use mechanical prophylaxis (SCDs). * GI prophylaxis: Protonix continued. Case discussed in detail with the attending physician, including the clinical presentation, diagnostic workup, and comprehensive management plan. The patient was present for the discussion and demonstrated understanding of his condition and the proposed plan. Plan discussed with: Patient TAIWOAKINBENEDICTO CHAPIN RESIDENT Feb 23, 2025 17:53
[2025-02-24] VITALS (8 sets, daily range): BP systolic 116–138; BP diastolic 78–90; PULSE 70–87; RESP 16–20; TEMP 96.9–98.8; O2SAT 91–97
[2025-02-24] MEDS: Ensure HIGH Protein Vanilla 8oz Bottle PO SCH (10:00)
[2025-02-24 10:56] LABS: INR 0.99 (0.9-1.15); Partial Thromboplastin Time 24.7 SEC (24.5-34.5); Prothrombin Time 10.5 sec (9.3-11.8)
[2025-02-24 11:06] LABS: Hematocrit 28.7 % (41.0-53.0); Hemoglobin 10.0 g/dL (13.5-17.5); Mean Corpuscular Hemoglobin 32.0 pg (28.0-32.0); Mean Corpuscular Volume 91.7 fL (80.0-100.0); Nucleated Red Blood Cells % 0.0 %
--- NOTE | 2025-02-24 11:07 | DVHPN2 ---
Progress Note Date Seen: Feb 24, 2025 Medical Necessity Reason Pt with a Central, PICC or Fol: Yes The following are medically ne: Central Line Subjective Patient reports: No new complaints Review of Systems: HEENT:Normal, CVS:Normal, RESPIRATORY:Normal, GI:Normal, :Normal, MSK:Normal, NEURO:Normal Objective vital signs Vital Sign Date Time Temp Pulse Resp B/P (MAP) Pulse Ox O2 Delivery O2 Flow Rate FiO2 02/24/25 09:09 75 17 116/78 02/24/25 09:00 97.9 95 97.9 02/24/25 08:00 Room Air* 0 21 Total Intake and Output 02/23/25 02/23/25 02/24/25 14:59 22:59 06:59 Intake Total 200 ml 1100 ml 950 ml Output Total 805 ml 55 ml Balance 200 ml 295 ml 895 ml medications Current Medications Medications Dose Ordered Sig/Liz Route Start Time Stop Time Status Last Admin Dose Admin Cefazolin Sodium/ Dextrose 50 ml @ 50 mls/hr Q8HR IV 02/18/25 14:00 02/24/25 05:13 50 MLS/HR Metronidazole 100 ml @ 100 mls/hr Q8HR IV 02/18/25 14:00 02/24/25 05:12 100 MLS/HR Hydromorphone HCl 1 mg Q3HPRN PRN IV 02/18/25 09:45 02/24/25 09:09 1 MG Pantoprazole Sodium 40 mg DAILY IV 02/18/25 10:00 02/24/25 08:48 40 MG Acetaminophen 650 mg Q6HP PRN PO 02/18/25 12:30 Acetaminophen/ Hydrocodone Bitart 1 tab Q6HPRN PRN PO 02/18/25 12:30 02/24/25 04:01 1 TAB Ondansetron HCl 4 mg Q6HPRN PRN IV 02/18/25 12:30 Potassium Chloride/Dextrose/ Sod Cl 1,000 ml @ 150 mls/hr Q6H40M IV 02/18/25 14:30 UNV Lactated Ringer's 1,000 ml @ 75 mls/hr [id number] IV 02/19/25 13:15 02/20/25 09:50 75 MLS/HR Enteral Nutritional Formula 240 ml DAILY PO 02/24/25 10:00 UNV Examination: GENERAL:Normal, HEENT:Normal, NECK:Normal, LUNGS:Normal, CVS:Normal, ABDOMEN:Normal, ABDOMEN:Abnormal (leila drain), MSK:Normal, SKIN:Normal, NEURO:Normal, :Normal laboratory and microbiology Laboratory Tests 02/22/25 05:24 Test 02/22/25 05:24 Range/Units Serum Glucose 94 74-106 mg/dL Microbiology Date/Time Source Procedure Growth Status 02/18/25 16:36 Nose MRSA Screen - Final Complete Problem List/Assessment/Plan Problem List/Assessment/Plan * Hypertension, for which the patient's blood pressure will be monitored. * History of hepatitis C- treated * Obesity. * Status post laparoscopic cholecystectomy for cholelithiasis and chronic cholecystitis. * bleeding with likely hypovolemic shock: ivf, blood transfusion, iv antibiotics * Advanced care planning. The patient is a full code-Time spent is 18 minutes. Plan discussed with: Patient My Orders My Orders Orders - ROMANA LANDAVERDE MD Procedure Category Date Status Time Complete Blood Count LAB 02/24/25 In Process 06:00 Dietary Evaluation Review Recommendations by RD: Protein Supplementation Comments: 1) Initiate Ensure High Protein qd 2) Encourage optimal PO intake 3) Advance to low-fat diet when medically feasible 4) Refer to outpatient RD for weight management 5) Follow-up with gastroenterology 6) Continue to monitor I&O, labs, and skin integrity Expected Outcomes/Goals: 1) appetite and labs to improve 2) diet to advance 3) f/u in 3-5 days Date of Service: Feb 24, 2025 Billing Provider: ROMANA LANDAVERDE MD Common Visit Codes: [id number] INP/OBS CARE(HIGH) ROMANA LANDAVERDE MD Feb 24, 2025 11:07
[2025-02-24] MEDS: metroNIDAZOLE 500 MG TAB PO SCH (14:19)
--- NOTE | 2025-02-24 18:28 | DVHPN2 ---
Progress Note Date Seen: Feb 24, 2025 Resident Creating Document: ANGEL MARAVILLA RESIDENT Medical Necessity Reason Pt with a Central, PICC or Fol: Yes The following are medically ne: Central Line Subjective Review of Systems Brief Gist of Todays Progress & Treatment * Hemoglobin and hematocrit have stabilized (Hgb trending up from 8.7 to 10). * Vital signs stable, afebrile, hemodynamically stable. * RADHA drain output minimal with serosanguineous character, no active bleeding observed. * Dressing changed; * Feeds: Patient tolerating oral diet without issues. * Antibiotics: Receiving IV Cefazolin and Metronidazole; both continued per surgical protocol. * Protonix 40 mg IV continued for GI mucosal protection. * Blood thinners held due to recent post-op bleeding. Objective vital signs Vital Sign Date Time Temp Pulse Resp B/P (MAP) Pulse Ox O2 Delivery O2 Flow Rate FiO2 02/24/25 17:00 98.8 77 18 126/86 (99) 95 98.8 02/24/25 08:00 Room Air* 0 21 Total Intake and Output 02/23/25 02/23/25 02/24/25 15:00 23:00 07:00 Intake Total 200 ml 1100 ml 950 ml Output Total 805 ml 55 ml Balance 200 ml 295 ml 895 ml medications Current Medications Medications Dose Ordered Sig/Liz Route Start Time Stop Time Status Last Admin Dose Admin Cefazolin Sodium/ Dextrose 50 ml @ 50 mls/hr Q8HR IV 02/18/25 14:00 02/24/25 14:20 50 MLS/HR Hydromorphone HCl 1 mg Q3HPRN PRN IV 02/18/25 09:45 02/24/25 14:33 1 MG Acetaminophen 650 mg Q6HP PRN PO 02/18/25 12:30 Acetaminophen/ Hydrocodone Bitart 1 tab Q6HPRN PRN PO 02/18/25 12:30 02/24/25 04:01 1 TAB Ondansetron HCl 4 mg Q6HPRN PRN IV 02/18/25 12:30 Potassium Chloride/Dextrose/ Sod Cl 1,000 ml @ 150 mls/hr Q6H40M IV 02/18/25 14:30 UNV Lactated Ringer's 1,000 ml @ 75 mls/hr [id number] IV 02/19/25 13:15 02/24/25 13:20 75 MLS/HR Enteral Nutritional Formula 240 ml DAILY PO 02/24/25 10:00 Metronidazole 500 mg Q8HR PO 02/24/25 14:00 02/24/25 14:19 500 MG Pantoprazole Sodium 40 mg DAILY@0600 PO 02/25/25 06:00 Examination General: Alert, comfortable, in no distress. * Abdomen: Soft, non-distended, non-tender. Incision sites clean, dry, intact. * RADHA drain: Minimal serosanguinous output, no active bleeding. * Bowel sounds: Present. * Skin: No jaundice or ecchymosis. * Other systems: Unremarkable. laboratory and microbiology Laboratory Tests 02/24/25 08:26 02/22/25 05:24 Test 02/22/25 05:24 Range/Units Serum Glucose 94 74-106 mg/dL Microbiology Date/Time Source Procedure Growth Status 02/18/25 16:36 Nose MRSA Screen - Final Complete Problem List/Assessment/Plan Problem List/Assessment/Plan Assessment * s/p laparoscopic cholecystectomy POD#5, with resolved post-operative bleeding and stable hemoglobin. * Improving clinically with decreasing drain output. * No evidence of ongoing intra-abdominal bleeding or infection. Plan/Recommendation Gastrointestinal 1. Continue Protonix 40 mg IV daily for GI mucosal protection. 2. Monitor RADHA drain output record volume and character every shift. 3. Continue IV antibiotics (Cefazolin + Metronidazole) until final surgical clearance, then reassess need for oral transition. 4. Maintain abdominal binder continuously to support wound healing. 5. Advance diet as tolerated currently tolerating oral feeds well. 6. Monitor bowel function encourage ambulation to promote GI motility. We will continue to monitor the patient closely. Hematology * Continue to monitor CBC daily for hemoglobin stability. * Iron supplementation planned at discharge (PO iron 300 mg TID). * No transfusion indicated at this time. Fluids * Continue maintenance fluids PRN; currently tolerating oral intake well. * Discontinue IV fluids when oral intake is adequate. Prophylaxis * DVT prophylaxis: Hold pharmacologic anticoagulation until no risk of bleeding; use mechanical prophylaxis (SCDs). * GI prophylaxis: Protonix continued. Case discussed in detail with the attending physician, including the clinical presentation, diagnostic workup, and comprehensive management plan. The patient was present for the discussion and demonstrated understanding of his condition and the proposed plan. Plan discussed with: Patient Dietary Evaluation Review Recommendations by RD: Protein Supplementation Comments: 1) Initiate Ensure High Protein qd 2) Encourage optimal PO intake 3) Advance to low-fat diet when medically feasible 4) Refer to outpatient RD for weight management 5) Follow-up with gastroenterology 6) Continue to monitor I&O, labs, and skin integrity Expected Outcomes/Goals: 1) appetite and labs to improve 2) diet to advance 3) f/u in 3-5 days ANGEL MARAVILLA RESIDENT Feb 24, 2025 18:28
--- NOTE | 2025-02-24 21:30 | DVHPN2 ---
Subjective Date Seen: Feb 24, 2025 Post op day Post op day: 6 Patient reports: No new complaints General: Normal HNT: Normal Cardiovascular: Normal Respiratory: Normal Gastrointestinal: Normal Genitourinary: Normal Musculoskeletal: Normal Neurological: Normal Objective Vitals Vital Sign Date Time Temp Pulse Resp B/P (MAP) Pulse Ox O2 Delivery O2 Flow Rate FiO2 02/24/25 20:28 86 20 145/86 02/24/25 17:00 98.8 95 98.8 02/24/25 08:00 Room Air* 0 21 Total Intake and Output 02/23/25 02/23/25 02/24/25 15:00 23:00 07:00 Intake Total 200 ml 1100 ml 950 ml Output Total 805 ml 55 ml Balance 200 ml 295 ml 895 ml Medications Current Medications Medications Dose Ordered Sig/Liz Route Start Time Stop Time Status Last Admin Dose Admin Cefazolin Sodium/ Dextrose 50 ml @ 50 mls/hr Q8HR IV 02/18/25 14:00 02/24/25 14:20 50 MLS/HR Hydromorphone HCl 1 mg Q3HPRN PRN IV 02/18/25 09:45 02/24/25 20:28 1 MG Acetaminophen 650 mg Q6HP PRN PO 02/18/25 12:30 Acetaminophen/ Hydrocodone Bitart 1 tab Q6HPRN PRN PO 02/18/25 12:30 02/24/25 04:01 1 TAB Ondansetron HCl 4 mg Q6HPRN PRN IV 02/18/25 12:30 Potassium Chloride/Dextrose/ Sod Cl 1,000 ml @ 150 mls/hr Q6H40M IV 02/18/25 14:30 UNV Lactated Ringer's 1,000 ml @ 75 mls/hr [id number] IV 02/19/25 13:15 02/24/25 13:20 75 MLS/HR Enteral Nutritional Formula 240 ml DAILY PO 02/24/25 10:00 Metronidazole 500 mg Q8HR PO 02/24/25 14:00 02/24/25 14:19 500 MG Pantoprazole Sodium 40 mg DAILY@0600 PO 02/25/25 06:00 General: Normal, Well developed Head/Eyes: Normal ENT: Normal Neck: Normal Lungs: Normal Cardiovascular: Normal Abdominal: Normal, Soft Neurological: Normal Labs and Microbiology Laboratory Tests 02/24/25 08:26 02/22/25 05:24 Test 02/22/25 05:24 Range/Units Serum Glucose 94 74-106 mg/dL Ass/Plan Labs and/or images reviewed: Labs reviewed by me Problem List Assessment * s/p laparoscopic cholecystectomy POD#5, with resolved post-operative bleeding and stable hemoglobin. * Improving clinically with decreasing drain output. * No evidence of ongoing intra-abdominal bleeding or infection. Plan/Recommendation Gastrointestinal 1. Continue Protonix 40 mg IV daily for GI mucosal protection. 2. Monitor RADHA drain output record volume and character every shift. 3. Continue IV antibiotics (Cefazolin + Metronidazole) until final surgical clearance, then reassess need for oral transition. 4. Maintain abdominal binder continuously to support wound healing. 5. Advance diet as tolerated currently tolerating oral feeds well. 6. Monitor bowel function encourage ambulation to promote GI motility. We will continue to monitor the patient closely. Hematology * Continue to monitor CBC daily for hemoglobin stability. * Iron supplementation planned at discharge (PO iron 300 mg TID). * No transfusion indicated at this time. Fluids * Continue maintenance fluids PRN; currently tolerating oral intake well. * Discontinue IV fluids when oral intake is adequate. Prophylaxis * DVT prophylaxis: Hold pharmacologic anticoagulation until no risk of bleeding; use mechanical prophylaxis (SCDs). * GI prophylaxis: Protonix continued. Case discussed in detail with the attending physician, including the clinical presentation, diagnostic workup, and comprehensive management plan. The patient was present for the discussion and demonstrated understanding of his condition and the proposed plan. Assessment/Plan s/p laparoscopic cholecystectomy POD#1 Subjective: - The patient reports feeling better and has no new complaints. Objective: - H and H are stable. - The abdomen is soft, nondistended, and appropriately tender. - The abdominal wound is dry and intact. - The RADHA drain has approximately 40cc of sanguineous fluid. - The drainage from the RADHA site on the side of the abdomen has been decreasing since yesterday. Plan: - Continue the current treatment plan. - A CBC and CMP are scheduled for tomorrow morning. s/p laparoscopic cholecystectomy POD#5 Complaints: - No new complaints. Review of Systems: - The patient denies nausea and vomiting. - The patient is tolerating their diet, having normal bowel movements, and passing gas. - The patient stated they are no longer on oxygen and their saturation levels are satisfactory. Physical Exam: - The patient was observed sitting up in bed and eating breakfast. - The abdomen is soft, non-distended, and non-tender. - A RADHA drain is in place with approximately 10 cc of sanguineous fluid output. Assessment: - The patient reports being ready for discharge. - Following a review of the patient's notes and labs, and after a discussion with Dr. Duron, the patient is deemed medically appropriate for discharge from a surgical perspective. Plan: - The patient is to be discharged home. - please send home with 300 mg po of oral iron three times a day. - The patient is advised to drink plenty of water. - The patient is to wear an abdominal binder continuously. - The patient is permitted to shower. - patient to contact the clinic with any concerns. - follow-up appointment in the surgery clinic in one week. 02/23/2025 s/p laparoscopic cholecystectomy POD#5 Physical Exam: - No output observed from the RADHA drain. - The gauze dressing was saturated with dark, old-appearing blood. - The RADHA drain was irrigated, and clots were removed. - The RADHA drain is now draining serosanguineous fluid. - new lab ordered at 1400 Hemoglobin is 9.9. Plan: - The patient will wear an abdominal binder continuously . - Dressings to be changed as needed. - Hemoglobin was ordered for tomorrow am - do not discharge will see patient tomorrow 02/24/25 s/p laparoscopic cholecystectomy POD#6 Patient seen earlier today in the afternoon all notes and labs reviewed No new complaints. Patient reports feeling fine. - No shortness of breath reported. - Reports normal bowel activity. - Hemoglobin: 10 - Saturation: 95% - Abdomen: Soft, non-distended, and appropriately tender. - RADHA site demonstrates minimal dark sanguinous drainage. The RADHA drain itself shows minimal output. The RADHA drain was irrigated due to the presence of a few clots in the tube. The RADHA drain is now patent and draining freely. Plan: -possible discharge tomorrow if his hemoglobin level remains stable. CBC in the AM Prognosis: Good Plan discussed with patient Visit Coding Surgery Date of Service if different f: Feb 24, 2025 Billing Provider: KUSH CORNELIUS MD Surgery Visit Codes: [id number] INP/OBS CARE(HIGH) CINTIA WALTON NP Feb 24, 2025 21:30
[2025-02-25 01:00] VITALS: BP 137/88; PULSE 79; RESP 20; TEMP 98.6; O2SAT 95
[2025-02-25 05:00] VITALS: BP 125/84; PULSE 74; RESP 18; TEMP 97.9; O2SAT 96
[2025-02-25] MEDS: PANTOPRAZOLE 40 MG TAB PO SCH (06:10)
[2025-02-25 07:46] LABS: Hematocrit 28.6 % (41.0-53.0); Hemoglobin 9.9 g/dL (13.5-17.5); Mean Corpuscular Hemoglobin 31.7 pg (28.0-32.0); Mean Corpuscular Volume 91.3 fL (80.0-100.0); Nucleated Red Blood Cells % 0.0 %
[2025-02-25 08:00] VITALS: PULSE 70; PULSE 75; RESP 17; O2SAT 93
--- NOTE | 2025-02-25 08:18 | DVHPN2 ---
Subjective Date Seen: Feb 25, 2025 Post op day Post op day: 7 Patient reports: No new complaints General: Normal HNT: Normal Cardiovascular: Normal Respiratory: Normal Gastrointestinal: Normal Genitourinary: Normal Musculoskeletal: Normal Neurological: Normal Objective Vitals Vital Sign Date Time Temp Pulse Resp B/P (MAP) Pulse Ox O2 Delivery O2 Flow Rate FiO2 02/25/25 05:00 97.9 74 18 125/84 (98) 96 97.9 02/24/25 20:00 Room Air* 0 21 Total Intake and Output 02/24/25 02/24/25 02/25/25 15:00 23:00 07:00 Intake Total 240 ml 2070 ml 1500 ml Balance 240 ml 2070 ml 1500 ml Medications Current Medications Medications Dose Ordered Sig/Liz Route Start Time Stop Time Status Last Admin Dose Admin Cefazolin Sodium/ Dextrose 50 ml @ 50 mls/hr Q8HR IV 02/18/25 14:00 02/25/25 06:09 50 MLS/HR Hydromorphone HCl 1 mg Q3HPRN PRN IV 02/18/25 09:45 02/25/25 00:51 1 MG Acetaminophen 650 mg Q6HP PRN PO 02/18/25 12:30 Acetaminophen/ Hydrocodone Bitart 1 tab Q6HPRN PRN PO 02/18/25 12:30 02/25/25 04:41 1 TAB Ondansetron HCl 4 mg Q6HPRN PRN IV 02/18/25 12:30 Potassium Chloride/Dextrose/ Sod Cl 1,000 ml @ 150 mls/hr Q6H40M IV 02/18/25 14:30 UNV Lactated Ringer's 1,000 ml @ 75 mls/hr [id number] IV 02/19/25 13:15 02/24/25 21:53 75 MLS/HR Enteral Nutritional Formula 240 ml DAILY PO 02/24/25 10:00 Metronidazole 500 mg Q8HR PO 02/24/25 14:00 02/25/25 06:10 500 MG Pantoprazole Sodium 40 mg DAILY@0600 PO 02/25/25 06:00 02/25/25 06:10 40 MG General: Normal, Well developed Head/Eyes: Normal ENT: Normal Neck: Normal Lungs: Normal Cardiovascular: Normal Abdominal: Normal, Soft Neurological: Normal Labs and Microbiology Laboratory Tests 02/25/25 06:43 02/22/25 05:24 Test 02/22/25 05:24 Range/Units Serum Glucose 94 74-106 mg/dL Ass/Plan Labs and/or images reviewed: Labs reviewed by me Problem List Assessment * s/p laparoscopic cholecystectomy POD#5, with resolved post-operative bleeding and stable hemoglobin. * Improving clinically with decreasing drain output. * No evidence of ongoing intra-abdominal bleeding or infection. Plan/Recommendation Gastrointestinal 1. Continue Protonix 40 mg IV daily for GI mucosal protection. 2. Monitor RADHA drain output record volume and character every shift. 3. Continue IV antibiotics (Cefazolin + Metronidazole) until final surgical clearance, then reassess need for oral transition. 4. Maintain abdominal binder continuously to support wound healing. 5. Advance diet as tolerated currently tolerating oral feeds well. 6. Monitor bowel function encourage ambulation to promote GI motility. We will continue to monitor the patient closely. Hematology * Continue to monitor CBC daily for hemoglobin stability. * Iron supplementation planned at discharge (PO iron 300 mg TID). * No transfusion indicated at this time. Fluids * Continue maintenance fluids PRN; currently tolerating oral intake well. * Discontinue IV fluids when oral intake is adequate. Prophylaxis * DVT prophylaxis: Hold pharmacologic anticoagulation until no risk of bleeding; use mechanical prophylaxis (SCDs). * GI prophylaxis: Protonix continued. Case discussed in detail with the attending physician, including the clinical presentation, diagnostic workup, and comprehensive management plan. The patient was present for the discussion and demonstrated understanding of his condition and the proposed plan. Problems(with codes): (1) S/P cholecystectomy Assessment/Plan s/p laparoscopic cholecystectomy POD#1 Subjective: - The patient reports feeling better and has no new complaints. Objective: - H and H are stable. - The abdomen is soft, nondistended, and appropriately tender. - The abdominal wound is dry and intact. - The RADHA drain has approximately 40cc of sanguineous fluid. - The drainage from the RADHA site on the side of the abdomen has been decreasing since yesterday. Plan: - Continue the current treatment plan. - A CBC and CMP are scheduled for tomorrow morning. s/p laparoscopic cholecystectomy POD#5 Complaints: - No new complaints. Review of Systems: - The patient denies nausea and vomiting. - The patient is tolerating their diet, having normal bowel movements, and passing gas. - The patient stated they are no longer on oxygen and their saturation levels are satisfactory. Physical Exam: - The patient was observed sitting up in bed and eating breakfast. - The abdomen is soft, non-distended, and non-tender. - A RADHA drain is in place with approximately 10 cc of sanguineous fluid output. Assessment: - The patient reports being ready for discharge. - Following a review of the patient's notes and labs, and after a discussion with Dr. Duron, the patient is deemed medically appropriate for discharge from a surgical perspective. Plan: - The patient is to be discharged home. - please send home with 300 mg po of oral iron three times a day. - The patient is advised to drink plenty of water. - The patient is to wear an abdominal binder continuously. - The patient is permitted to shower. - patient to contact the clinic with any concerns. - follow-up appointment in the surgery clinic in one week. 02/23/2025 s/p laparoscopic cholecystectomy POD#5 Physical Exam: - No output observed from the RADHA drain. - The gauze dressing was saturated with dark, old-appearing blood. - The RADHA drain was irrigated, and clots were removed. - The RADHA drain is now draining serosanguineous fluid. - new lab ordered at 1400 Hemoglobin is 9.9. Plan: - The patient will wear an abdominal binder continuously . - Dressings to be changed as needed. - Hemoglobin was ordered for tomorrow am - do not discharge will see patient tomorrow 02/24/25 s/p laparoscopic cholecystectomy POD#6 Patient seen earlier today in the afternoon all notes and labs reviewed No new complaints. Patient reports feeling fine. - No shortness of breath reported. - Reports normal bowel activity. - Hemoglobin: 10 - Saturation: 95% - Abdomen: Soft, non-distended, and appropriately tender. - RADHA site demonstrates minimal dark sanguinous drainage. The RADHA drain itself shows minimal output. The RADHA drain was irrigated due to the presence of a few clots in the tube. The RADHA drain is now patent and draining freely. Plan: -possible discharge tomorrow if his hemoglobin level remains stable. CBC in the AM 02/25/2025 s/p laparoscopic cholecystectomy POD#7 - The patient reports feeling better and has no new complaints. - The patient denies nausea and vomiting. - The patient reports normal bowel activity. - The patient is comfortably laying in bed. - The abdomen is soft and non-distended, appropriately tender - Wounds are clean, dry, and intact. - The RADHA drain site is clean and dry. - The RADHA drain has minimal sanguineous output. Assessment: - The patient is tolerating their diet. - Hemoglobin level is stable 9.9 today - The patient is stable for discharge from a surgical perspective. Plan: - Prescribe iron supplementation to be taken at home. - Advised the patient to drink plenty of water. - patient follow-up appointment in the surgery clinic this Sunday. Prognosis: Good Plan discussed with patient, Dr Simon Visit Coding Surgery Date of Service if different f: Feb 25, 2025 Billing Provider: KUSH SIMON MD Surgery Visit Codes: [id number] INP/OBS CARE(HIGH) CINTIA WALTON NP Feb 25, 2025 08:18
[2025-02-25 09:00] VITALS: BP 132/83; PULSE 75; RESP 16; TEMP 97.4; O2SAT 96
--- NOTE | 2025-02-25 10:58 | DVHDS2 ---
Discharge Summary Date of Admission Feb 18, 2025 at 10:34 Date of Discharge: Feb 25, 2025 Labs/Diagnostic Data: Laboratory Results Test 02/25/25 06:43 02/24/25 08:26 02/22/25 05:24 02/21/25 06:10 White Blood Count 6.8 10^3/uL (4.4-10.8) Red Blood Count 3.13 10^6/uL (4.5-5.90) Hemoglobin 9.9 g/dL (13.5-17.5) Hematocrit 28.6 % (41.0-53.0) Mean Corpuscular Volume 91.3 fL (80.0-100.0) Mean Corpuscular Hemoglobin 31.7 pg (28.0-32.0) Mean Corpuscular Hemoglobin Concent 34.7 g/dL (32.0-36.0) Red Cell Distribution Width 14.9 % (11.8-14.3) Platelet Count 178 10^3/uL (140-450) Mean Platelet Volume 8.0 fL (6.9-10.8) Neutrophils (%) (Auto) 76.4 % (37.0-80.0) Lymphocytes (%) (Auto) 12.2 % (10.0-50.0) Monocytes (%) (Auto) 9.3 % (0.0-12.0) Eosinophils (%) (Auto) 1.9 % (0.0-7.0) Basophils (%) (Auto) 0.2 % (0.0-2.0) Neutrophils # (Auto) 5.2 10 ^3/uL (1.6-8.6) Lymphocytes # (Auto) 0.8 10 ^3/uL (0.4-5.4) Monocytes # (Auto) 0.6 10 ^3/uL (0-1.3) Eosinophils # (Auto) 0.1 10 ^3/uL (0-0.8) Basophils # (Auto) 0 10 ^3/uL (0-0.2) Nucleated Red Blood Cells 0.0 % Prothrombin Time 10.5 sec (9.3-11.8) Prothrombin Time INR 0.99 (0.9-1.15) Activated Partial Thromboplast Time 24.7 SEC (24.5-34.5) Sodium Level 139 mmol/L (136-145) Potassium Level 4.0 mmol/L (3.5-5.1) Chloride Level 103 mmol/L (98-107) Carbon Dioxide Level 28 mmol/L (20-31) Anion Gap 8 (5-15) Blood Urea Nitrogen 14 mg/dL (9-23) Creatinine 0.81 mg/dL (0.700-1.30) Glomerular Filtration Rate Calc 101 mL/min (>90) BUN/Creatinine Ratio 17.3 (10.0-20.0) Serum Glucose 94 mg/dL (74-106) Calcium Level 8.5 mg/dL (8.7-10.4) Total Bilirubin 0.6 mg/dL (0.2-1.0) Aspartate Amino Transferase (AST) 29 U/L (13-40) Alanine Aminotransferase (ALT) 21 U/L (7-40) Alkaline Phosphatase 35 U/L (46-116) Total Protein 5.7 g/dL (5.7-8.2) Albumin 3.7 g/dL (3.2-4.8) Magnesium Level 2.0 mg/dL (1.6-2.6) Test 02/17/25 12:20 Urine Color Yellow (Yellow) Urine Clarity Clear (Clear) Urine pH 6.0 (5.0-9.0) Urine Specific [place] 1.029 (1.001-1.035) Urine Protein Negative (Negative) Urine Ketones Negative (Negative) Urine Blood Negative /uL (Negative) Urine Nitrite Negative (Negative) Urine Bilirubin Negative (Negative) Urine Urobilinogen Normal mg/dL (Negative) Urine Leukocyte Esterase Negative /uL (Negative) Urine RBC 1 /hpf (0 - 3) Urine Microscopic WBC 1 /HPF (0-3) Urine Squamous Epithelial Cells Few /hpf (<5) Urine Bacteria None seen /hpf (None Seen) Urine Mucus Few (None Seen) Urine Glucose Normal mg/dL (Normal) Other Laboratory Tests 02/25/25 06:43 02/22/25 05:24 Brief Hx & Hospital Course: SEE DICTATED NOTE Condition at Discharge: Good Final Diagnosis/Problems List LAP REBEKAH Discharge Disposition: Home Discharge Instruct/Medications Diet: Regular Activity: No Restrictions, As Tolerated Follow Up/Referral: FU WITH DR CORNELIUS NEXT WEEK Medications: SCRIPT TO PHARMACY Scheduled Aspirin (Aspirin Low Dose), 1 TAB PO DAILY, (Reported) Lisinopril (Lisinopril), 1 TAB PO DAILY, (Reported) Miscellaneous Medications Fish Oil (Fish Oil), 1,000 MG PO, (Reported) Multiple Vitamins W/ Minerals (Centrum), 1 OR, (Reported) Tirzepatide (Zepbound), 5 MG SC, (Reported) Discharge Statement: "Patient was advised to return to the ER or call 911 if any headaches, dizziness, shortness of breath, chest pain, abdominal pain, bleeding, fevers, or worsening of medical condition. Patient was counseled about treatment plan, medications, possible side effects, patientverbalized understanding. All questions were answered to the best of my ability. This discharge took greater then 30 minutes in planning, reviewing documentation, counseling the patient, and discussing with other team members." ASSESSMENT ASSESSMENT Assessment ISAIAH WELCH Date of Service: Feb 25, 2025 Billing Provider: ROMANA LANDAVERDE MD Common Visit Codes: [id number] DISCH DAY >30min ROMANA LANDAVERDE MD Feb 25, 2025 10:58
[2025-02-25] MEDS ORDERED: CEPH500C PO (10:59)
[2025-02-25] MEDS ORDERED: TRAM-626 PO (10:59)
--- NOTE | 2025-02-25 11:09 | DVHDS ---
DATE OF DISCHARGE: 02/25/2025 The patient is a 59-year-old gentleman who was admitted after he underwent laparoscopic cholecystectomy for cholelithiasis and chronic cholecystitis. The patient has previous history of hepatitis C and hypertension. HOSPITAL COURSE: The patient developed significant bleeding postoperatively. He had a CT of abdomen and pelvis that showed moderate hemoperitoneum with a surgical drain in place. The patient was transfused a total of 2 units of blood. Hemoglobin at the time of discharge is stable at 9.9. His bleeding is now improved. The patient will be discharged home to be on tramadol p.r.n. for pain and cephalexin 500 mg t.i.d. for seven days. He will follow up with Dr. Simon in the coming week. FINAL DIAGNOSES: * Hypertension. * History of hepatitis C. * Bleeding with hypovolemic shock with acute blood loss anemia. * Obesity. * Status post laparoscopic cholecystectomy for cholelithiasis and chronic cholecystitis. Time spent in discharge planning and review of plan with the patient, nursing, and travel sales consultant was 39 minutes. MD DELILAH Dotson/ETIENNE TID: [id number] RECEIPT: [id number]
[2025-02-25 11:43] VITALS: BP 105/73
[2025-02-25 13:00] VITALS: BP 136/85; PULSE 74; RESP 16; TEMP 97.8; O2SAT 91
--- NOTE | 2025-02-25 15:50 | DVHPN2 ---
Progress Note Date Seen: Feb 25, 2025 Resident Creating Document: ANGEL MARAVILLA RESIDENT Medical Necessity Reason Pt with a Central, PICC or Fol: Yes The following are medically ne: Central Line Subjective Review of Systems Brief Gist of Todays Progress & Treatment * Hemoglobin and hematocrit have stabilized * Vital signs stable, afebrile, hemodynamically stable. * RADHA drain output minimal with serosanguineous character, no active bleeding observed. * Dressing changed; * Feeds: Patient tolerating oral diet without issues. * Antibiotics: Receiving IV Cefazolin and Metronidazole; both continued per surgical protocol. * Protonix 40 mg IV continued for GI mucosal protection. * Blood thinners held due to recent post-op bleeding. The patient is being discharged will need a close follow-up appointment within 1 week with generalized surgery. We will follow up the patient on outpatient basis within 3-4 months a GI clinic Objective vital signs Vital Sign Date Time Temp Pulse Resp B/P (MAP) Pulse Ox O2 Delivery O2 Flow Rate FiO2 02/25/25 13:00 97.8 74 16 136/85 (102) 91 97.8 02/25/25 08:00 Room Air* 0 21 Total Intake and Output 02/24/25 02/24/25 02/25/25 15:00 23:00 07:00 Intake Total 240 ml 2070 ml 1500 ml Balance 240 ml 2070 ml 1500 ml medications Current Medications Medications Dose Ordered Sig/Liz Route Start Time Stop Time Status Last Admin Dose Admin Potassium Chloride/Dextrose/ Sod Cl 1,000 ml @ 150 mls/hr [id number] IV 02/18/25 14:30 UNV Examination General: Alert, comfortable, in no distress. * Abdomen: Soft, non-distended, non-tender. Incision sites clean, dry, intact. * RADHA drain: Minimal serosanguinous output, no active bleeding. * Bowel sounds: Present. * Skin: No jaundice or ecchymosis. * Other systems: Unremarkable. laboratory and microbiology Laboratory Tests 02/25/25 06:43 02/22/25 05:24 Test 02/22/25 05:24 Range/Units Serum Glucose 94 74-106 mg/dL Microbiology Date/Time Source Procedure Growth Status 02/18/25 16:36 Nose MRSA Screen - Final Complete Problem List/Assessment/Plan Problem List/Assessment/Plan Assessment * s/p laparoscopic cholecystectomy POD#5, with resolved post-operative bleeding and stable hemoglobin. * Improving clinically with decreasing drain output. * No evidence of ongoing intra-abdominal bleeding or infection. Plan/Recommendation Gastrointestinal The patient is being discharged today. The patient will need close follow-up appointment within 1 week by the General surgery. We will need a follow-up appointment with GI within 3 months post discharge at outpatient clinic. 1. Continue Protonix 40 mg IV daily for GI mucosal protection. 2. Monitor RADHA drain output record volume and character every shift. 3. Continue IV antibiotics (Cefazolin + Metronidazole) until final surgical clearance, then reassess need for oral transition. 4. Maintain abdominal binder continuously to support wound healing. 5. Advance diet as tolerated currently tolerating oral feeds well. 6. Monitor bowel function encourage ambulation to promote GI motility. Hematology * Continue to monitor CBC daily for hemoglobin stability. * Iron supplementation planned at discharge (PO iron 300 mg TID). * No transfusion indicated at this time. Fluids * Continue maintenance fluids PRN; currently tolerating oral intake well. * Discontinue IV fluids when oral intake is adequate. Prophylaxis * DVT prophylaxis: Hold pharmacologic anticoagulation until no risk of bleeding; use mechanical prophylaxis (SCDs). * GI prophylaxis: Protonix continued. We are signing off on this patient thank you. Case discussed in detail with the attending physician, including the clinical presentation, diagnostic workup, and comprehensive management plan. The patient was present for the discussion and demonstrated understanding of his condition and the proposed plan. Plan discussed with: Patient Dietary Evaluation Review Recommendations by RD: Protein Supplementation Comments: 1) Initiate Ensure High Protein qd 2) Encourage optimal PO intake 3) Advance to low-fat diet when medically feasible 4) Refer to outpatient RD for weight management 5) Follow-up with gastroenterology 6) Continue to monitor I&O, labs, and skin integrity Expected Outcomes/Goals: 1) appetite and labs to improve 2) diet to advance 3) f/u in 3-5 days ANGEL MARAVILLA RESIDENT Feb 25, 2025 15:50
== END 2025-02-25 13:35 | disposition home or self-care (01) | DRG 417 ==
LOC: SUR 06:19 → OVERFLOW 10:34 → ICU WEST 16:49 → EAST 02-20 16:50 → WEST WING 02-22 00:10 → TELE-WESTW 02-22 04:22
PROVIDERS: ADMIT Internal Medicine; ATTEND Internal Medicine
PROC: 0DNW4ZZ Release Peritoneum, Percutaneous Endoscopic Approach (ICD-10-PCS; 2025-02-18)
PROC: 02HV33Z Insertion of Infusion Device into Superior Vena Cava, Percutaneous Approach (ICD-10-PCS; 2025-02-18)
PROC: 30233N1 Transfusion of Nonautologous Red Blood Cells into Peripheral Vein, Percutaneous Approach (ICD-10-PCS; 2025-02-18)
PROC: 0FT44ZZ Resection of Gallbladder, Percutaneous Endoscopic Approach (ICD-10-PCS; principal; 2025-02-18 08:31)
DX: K80.10 Calculus of gallbladder with chronic cholecystitis without obstruction (principal); K66.1 Hemoperitoneum; R57.1 Hypovolemic shock; D62 Acute posthemorrhagic anemia; I10 Essential (primary) hypertension; E66.9 Obesity, unspecified; K66.0 Peritoneal adhesions (postprocedural) (postinfection); Z68.37 Body mass index [BMI] 37.0-37.9, adult; Z79.899 Other long term (current) drug therapy
CPT/HCPCS: 36415; 36556; 71045; 74176; 80053; 81001; 83735; 85025; 85610; 85730; 86850; 86900; 86901; 86920; 87081; 93306; G0378; J0131; J0330; J1100; J2405; J2470; J2704; J3490

== ENCOUNTER 2025-04-03 06:37 | Outpatient (CLI) | payer BC ==
[~2025-04-03 06:37] MED LIST changes: +CEPH500C PO; +TRAM-626 PO
[2025-04-03 07:18] LABS: Hematocrit 40.3 % (41.0-53.0); Hemoglobin 14.1 g/dL (13.5-17.5); Mean Corpuscular Hemoglobin 30.2 pg (28.0-32.0); Mean Corpuscular Volume 86.4 fL (80.0-100.0); Nucleated Red Blood Cells % 0.3 %
[2025-04-03 07:26] LABS: INR 1.01 (0.9-1.15); Prothrombin Time 10.7 sec (9.3-11.8)
[2025-04-03 07:46] LABS: Alanine Aminotransferase 35 U/L (7-40); Albumin 4.5 g/dL (3.2-4.8); Alkaline Phosphatase 56 U/L (46-116); Anion Gap 11 (5-15); BUN/Creatinine Ratio 13.8 (10.0-20.0); Bilirubin, Total 0.4 mg/dL (0.2-1.0); Blood Urea Nitrogen 15 mg/dL (9-23); Calcium 9.7 mg/dL (8.7-10.4); Carbon Dioxide 26 mmol/L (20-31); Chloride 105 mmol/L (98-107); Cholesterol 167 mg/dL (< 200); Potassium 3.6 mmol/L (3.5-5.1); Sodium 142 mmol/L (136-145); Total Protein 7.5 g/dL (5.7-8.2)
[2025-04-03 07:52] LABS: Glucose 107 mg/dL (74-106); HDL Cholesterol 33 mg/dL (40-59); Triglycerides 258 mg/dL (< 150)
== END 2025-04-03 17:00 | disposition home or self-care (01) ==
LOC: LAB 06:37
PROVIDERS: ATTEND Licensed Practical Nurse
DX: B18.2 Chronic viral hepatitis C (principal); I10 Essential (primary) hypertension; R73.03 Prediabetes; B19.20 Unspecified viral hepatitis C without hepatic coma; E03.9 Hypothyroidism, unspecified
CPT/HCPCS: 36415; 80053; 80061; 82043; 83036; 84439; 84443; 85025; 85610; 87902

== ENCOUNTER 2025-06-22 06:27 | Outpatient (CLI) | payer BC ==
[2025-06-22 08:57] LABS: Cholesterol 209 mg/dL (< 200); HDL Cholesterol 39 mg/dL (40-59); Triglycerides 306 mg/dL (< 150)
== END 2025-06-22 17:00 | disposition home or self-care (01) ==
LOC: LAB 06:27
PROVIDERS: ATTEND Licensed Practical Nurse
DX: E78.5 Hyperlipidemia, unspecified (principal); E03.0 Congenital hypothyroidism with diffuse goiter
CPT/HCPCS: 36415; 80061; 84439; 84443